=== PATIENT | male | born 1960 | race Caucasian/White ===

== ENCOUNTER 2020-04-25 14:14 | Emergency (ER) | payer OTHER ==
[~2020-04-25 14:14] MED LIST: LAMISIL AT12 G2 TOP; VENTOLIN HFA IN18 GM INH; VOLTAREN **OUT75 MG PO
[2020-04-25 15:55] LABS: LACTIC ACID 3.3 mmol/L (0.4-1.9)
[2020-04-25 16:09] LABS: ALBUMIN 2.4 g/dL (3.4-5.0); ALKALINE PHOSHATASE 101 U/L (46-116); ALT 36 U/L (16-63); AST 70 U/L (15-37); BUN 23 mg/dL (7-18); BUN/CREAT RATIO (CALC) 15.5 RATIO; CHLORIDE 106 mmol/L (98-107); CO2 (BICARBONATE) 22 mmol/L (21-32); CREATININE 1.48 mg/dL (0.67-1.17); GLOBULIN (CALCULATION) 4.4 g/dL; GLUCOSE 90 mg/dL (74-106); LIPASE 59 U/L (73-393); POTASSIUM 3.4 mmol/L (3.5-5.1); TOTAL PROTEIN 6.8 g/dL (6.4-8.2)
[2020-04-25 16:12] LABS: EOSINOPHIL 3.1 % (0-5); HCT 32.5 % (42.0-52.0); HGB 10.8 g/dl (13.2-18.0); LYMPHOCYTE 19.8 % (15-48); MCH 30.8 pg (25.0-31.0); MCHC 33.2 g/dL (32.0-36.0); MCV 92.6 fL (78.0-100.0); MONOCYTE 13.6 % (0-12); NEUTROPHIL 61.8 % (41-80); NRBC 0; PLT 243 K/uL (150-400); RBC 3.51 M/uL (4.70-6.00); RDW 16.3 % (11.5-14.0); WBC 12.5 K/uL (4.0-10.5)
[2020-04-25 16:27] LABS: PTT 33.2 SECONDS (22.2-34.7)
[2020-04-25 16:28] LABS: BILIRUBIN 2+ mg/dL (NEGATIVE); BLOOD 2+ Ery/uL (NEGATIVE); CLARITY CLEAR (CLEAR); COLOR ORANGE (YELLOW); GLUCOSE (U) NORMAL (NORMAL); LEUKOCYTES NEGATIVE Leu/uL (NEGATIVE); NITRITE POSITIVE (NEGATIVE); PROTEIN NEGATIVE (NEGATIVE); SPECIFIC GRAVITY 1.025 (1.001-1.030)
[2020-04-25 16:32] LABS: INR 1.45 (0.9-1.2); PROTHROMBIN TIME 16.7 SECONDS (11.4-13.6)
[2020-04-25 16:33] LABS: ECSTASY (MDMA) NEGATIVE (NEGATIVE); MARIJUANA (THC) NEGATIVE (NEGATIVE); METHADONE NEGATIVE (NEGATIVE); OPIATES NEGATIVE (NEGATIVE)
[2020-04-25 16:34] LABS: AMPHETAMINES NEGATIVE (NEGATIVE); BARBITURATES NEGATIVE (NEGATIVE); OXYCODONE NEGATIVE (NEGATIVE)
[2020-04-25 16:38] LABS: BACTERIA TRACE; URINARY WBC RARE
[2020-04-25 16:39] LABS: MUCOUS TRACE
[2020-04-25 21:51] LABS: CPK 480 U/L (39-308)
[2020-04-25 21:53] LABS: ACETAMINOPHEN (TYLENOL) < 2.0 ug/mL (10.0-30.0)
[2020-04-26] MEDS ORDERED: KEFLEX250 MG PO (04:53)
== END 2020-04-26 10:50 | disposition home or self-care (01) ==
LOC: FER 14:14
PROVIDERS: Emergency Medicine
DX: F22 Delusional disorders (principal); E80.6 Other disorders of bilirubin metabolism; S81.802A Unspecified open wound, left lower leg, initial encounter; S81.801A Unspecified open wound, right lower leg, initial encounter; I10 Essential (primary) hypertension; J44.9 Chronic obstructive pulmonary disease, unspecified; W06.XXXA Fall from bed, initial encounter
CPT/HCPCS: 36415; 70450; 71045; 72170; 73630; 80053; 80305; 81001; 82140; 82550; 83605; 83690; 84145; 84443; 84484; 85025; 85610; 85730; 87040; 87088; G0480; J7030

== ENCOUNTER 2020-05-01 19:40 | Day surgery (SDCO) | payer OTHER ==
[~2020-05-01] VITALS: Ht 177.8 cm; Wt 130.8 kg
[~2020-05-01 19:40] MED LIST changes: +KEFLEX250 MG PO
[2020-05-01 20:55] LABS: BASOPHIL 1.1 % (0-2); EOSINOPHIL 6.2 % (0-5); HCT 28.2 % (42.0-52.0); HGB 8.6 g/dl (13.2-18.0); LYMPHOCYTE 22.3 % (15-48); MCH 30.1 pg (25.0-31.0); MCHC 30.5 g/dL (32.0-36.0); MCV 98.6 fL (78.0-100.0); MONOCYTE 11.3 % (0-12); MPV 10.3 fL (6.0-9.5); NEUTROPHIL 58.8 % (41-80); NRBC 0; PLT 99 K/uL (150-400); RBC 2.86 M/uL (4.70-6.00); RDW 16.4 % (11.5-14.0); WBC 3.7 K/uL (4.0-10.5)
[2020-05-01 21:20] LABS: BILIRUBIN - TOTAL 0.7 mg/dL (0.2-1.0); BUN/CREAT RATIO (CALC) 12.4 RATIO; CREATININE 1.29 mg/dL (0.67-1.17); GLOBULIN (CALCULATION) 4.1 g/dL; POTASSIUM 4.3 mmol/L (3.5-5.1); TOTAL PROTEIN 6.1 g/dL (6.4-8.2)
[2020-05-01 21:29] LABS: BILIRUBIN NEGATIVE (NEGATIVE); BLOOD 3+ Ery/uL (NEGATIVE); CLARITY CLEAR (CLEAR); COLOR YELLOW (YELLOW); GLUCOSE (U) NORMAL (NORMAL); LEUKOCYTES NEGATIVE Leu/uL (NEGATIVE); NITRITE NEGATIVE (NEGATIVE); PROTEIN NEGATIVE (NEGATIVE); pH 7.5 (5.0-9.0)
[2020-05-01 21:35] LABS: SQUAMOUS EPITHELIAL CELLS RARE; URINARY RBC 20-50; URINARY WBC RARE
[2020-05-03] MEDS ORDERED: KEFLEX250 MG PO (17:46)
[2020-05-03] MEDS ORDERED: LEXAPRO 10MG TA10 MG PO (17:46)
[2020-05-03] MEDS ORDERED: BACTRIM 400-801 EACH PO (17:47)
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
--- NOTE | 2020-05-04 18:00 | NUR ---
1600: CALLED [facility] FOR TRANSPORT, EMS JEWELRY ESTIMATOR QUAN CALLED BACK AND STATED THEY WILL NOT TRANSPORT PATIENT R/T HIM SIGNING OUT AMA AND NOT NEEDING MEDICAL ATTENTION, WENT TO BEDSIDE TO INFORM PATIENT AND HE BECAME IRRTATE AND STATED "YALL CAN'T KEEP ME HERE" I EXPLAINED TO HIM THAT WE HAD NO WAY TO GET HIM HOME AND I CONTACTED LAB SUPPORT TECHNICIAN TO BECOME INVOLVED.
--- NOTE | 2020-05-04 20:10 | NUR ---
1900: PATIENT REQUESTED TO GO BACK TO THE ER SINCE HE WAS STILL WAITING ON TRANSPORTATION, INFORMATION RESOURCES DIRECTOR WAS CALLED, STATED THAT WE SHOULD JUST KEEP HIM ON THE FLOOR INSTEAD OF STARTING PROCESS OF ADMISSION AND PLACEMENT, DISCUSSED WITH MD AND PATIENT AND IT WAS DECIDED THAT HE WOULD STAY.
--- NOTE | 2020-05-05 04:02 | NUR ---
1954- placed ibarra catheter 1999- patient requested to be placed on a lift and left dangle off of the bed. he states, "i do that all of the time at home with my lift". i educated that that would be unsafe. educated him also that we can place pillows behind him to relieve pressure off of his bottom and we can turn him side to side every 2 hours to prevent breakdown. patient states, "thats not going to work. my side hurts to lay on my side like that." after going back and forth about it, he allowed us to place 2 pillows behind him, to have him on his right side. 2129- patient calls out requesting to have the pillows removed, he was in too much pain and that the pillows elevated like that doesnt help. he didnt want pillows on the other side either. stressed the importance of Q2 hour turns but the patient was very adimant about not using the pillows.
[2020-05-05 06:43] LABS: BASOPHIL 0.8 % (0-2); EOSINOPHIL 6.4 % (0-5); HCT 26.5 % (42.0-52.0); HGB 8.5 g/dl (13.2-18.0); LYMPHOCYTE 21.7 % (15-48); MCH 30.9 pg (25.0-31.0); MCHC 32.1 g/dL (32.0-36.0); MCV 96.4 fL (78.0-100.0); MONOCYTE 9.2 % (0-12); MPV 11.1 fL (6.0-9.5); NEUTROPHIL 61.9 % (41-80); NRBC 0; RBC 2.75 M/uL (4.70-6.00); WBC 3.6 K/uL (4.0-10.5)
[2020-05-05 06:45] LABS: PLT 82 K/uL (150-400)
[2020-05-05 07:02] LABS: ALBUMIN 1.9 g/dL (3.4-5.0); BILIRUBIN - TOTAL 0.8 mg/dL (0.2-1.0); BUN/CREAT RATIO (CALC) 18.2 RATIO; CREATININE 0.88 mg/dL (0.67-1.17); GLOBULIN (CALCULATION) 4.1 g/dL; POTASSIUM 3.5 mmol/L (3.5-5.1)
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
--- NOTE | 2020-05-06 13:57 | NUR ---
THIS RN AND HARESH RN AT BEDSIDE. PT LOUD ARGUEMENTATIVE AND CURSING SAYING WE ARE "FUCKING WITH HIS LIFE AND KEEPING HIM HERE AGAINST HIS WILL". WE EXPLAINED THAT WE ARE NOT KEEPING HIM BUT HE HAS TO HAVE A PLACE TO GO TO AFTER HE IS DISCHARGED, WE CAN'T LEAVE HIM ON THE STREET. PT CALMED DOWN AND APOLOGETIC. HE STATED TO THIS RN THAT HE WANTED TO SIGN HIMSELF INTO A LONG-TERM. THIS RN TOLD PATIENT THAT SHE WOULD TELL BROADCAST CORRESPONDENT TOMORROW TO GET A REFERRAL TO A LONG-TERM. PT THEN STARTS CRYING AND RAISES HIS VOICE AND STATES HE HAS TO MAKE US LOVE HIM LIKE HE HAS TO MAKE HIS FAMILY LOVE HIM. THEN PT STATED HE DIDN'T WANT TO GO TO A LONG-TERM NOW THAT IT WAS GOING TO TAKE TOO LONG.
--- NOTE | 2020-05-07 11:41 | NUR ---
05/07/20 Mr. Shay was brought to the ED on 05/01/20 by an EMS from [place]. Patient had [facility]. EMS brought him to [facility] after being unable to get Mr. Shay into 2 different homes. Patient's son, Chico Shay, [phone], states that he does not wish to have contact with Mr. Shay. Florinda Garcia, [phone], has not responded to calls. Melva Winslow, former girlfriend to Dina, patient's daughter, wishes for her contact information to be removed from the face sheet. Esteban, Richard Fabian, [phone], reports patient not to be listed on the lease and therefore he will not uhnlock the door to the [place] address. Mr. Peralta reports that Ms. Garcia will terminate her lease at the end of May. However, May's rent has not been paid. - The [facility], , reports persons be required to manage their own ADLs and to transfer independently to a bed. Mr. Shay states that he is unable to transfer independently. - Mr. Shay initially said he would not go to a NH and then he agreed. Referrals were made to [facility] on 05/03/20. -Today, Mr. Shay states that he will not go to a NH. He reports plans to go to a motel. He does not have his bank card and believes Ms. Garcia will pay for the hotle room. - This professor of social work and Kashif Mejia were present when Mr. Shay was speaking to Ms. Garcia on the telephone. Ms. Garcia said the [facility] the [facility] have been placed in the front yard to include Mr. Shay's hospital bed and w/c. - Mr. Peralta Esteban was contacted. He agreed to place the items back in the home. - Plans were made for this professor of social work and Ms. Mejia to return re-visit Mr. Shay for an update on his plans.
--- NOTE | 2020-05-07 13:23 | NUR ---
MET WITH MR. JEFFERS HE HAS SPOKEN WITH HIS BANK, ABOUND. PER MR. JEFFERS, THE BANK HAS AGREED TO ALLOW MR. HERNANDEZ TO SIGN A NOTORIZED STATEMENT THAT WILL ALLOW SAE HERNANDEZ TO WITHDRAW $1,253.00 FROM HIS SAVINGS ACCOUNT. TYPED THE STATEMENT FOR MR. JEFFERS AND READ THE INFORMATION TO HIM IN FRONT OF THE ALLEY LOZANO. MR. CAMARILLO SIGNED THE STATEMENT. GAVE HIM THE ORIGINAL STATEMENT WELL A COPY.
--- NOTE | 2020-05-07 13:25 | NUR ---
MR. JEFFERS ASKED ME TO REMAIN IN THE ROOM WHILE HE CALLED THE [facility]. HE STATED THAT THEY DO HAVE A ROOM AVAILABLE AND FOR TWO NIGHTS IT WOULD COST $110.00 AND FOR A WEEK IT WOULD BE APPROX $300.00 PLUS. MR. JEFFERS IS REFUSING TO GO TO A FACILITY OR REHAB. HE STATES THAT HE UNDERSTANDS THE CONSEQUENCES OF TRYING TO CARE FOR HIMSELF AND THAT HE ACCEPTS FULL RESPONSIBLITY. HE WILL TRY TO CONTACT HIS FRIEND, URBANO, FOR ASSISTANCE. HE STATES THAT HIS SISTER, JOSÉ MIGUEL, AND GIRLFRIEND, SAE, WILL BRING HIM FOOD. I ADVISED MR. JEFFERS THIS IS NOT THE BEST PLAN AND THAT HE SHOULD RECONSIDER GOING TO A FACILITY. AT THIS TIME HE BECAME UPSET AND STATED THAT HE "DONE HIS TIME AND PAID BACK SOCIETY" AND HE WOULD NOT BE LOCKED IN ANOTHER FACILITY.
--- NOTE | 2020-05-08 17:33 | NUR ---
HUMAN FACTORS ENGINEER, HARESH, ADVISED THAT SHE SPOKE WITH DR. MELGOZA AND PT. WOULD BE ALLOWED TO D/C AMA. HARESH ADVISED TO ARRANGE A RIDE AND GET A WHEELCHAIR. HARESH AND I MET WITH PT. IN HIS ROOM AND HIS GIRLFRIEND, SAE. HARESH ADVISED PT. THAT HE COULD SIGN OUT AMA. HARESH ADVISED TO GET A WHEELCHAIR AND TRANSPORTATION FOR PT. TC TO [facility] TRANSPORTATION. THEY WILL PROVIDE A WHEELCHAIR VAN FOR TRANSPORATION TO THE [facility]. SPOKE WITH SABI, SHE ADVISED THAT PT. WOULD BE PICKED UP FOR TRANSPORTATION APPROX 5-5:30 P.M. CONFIRMATION# [id number]. TC TO MARÍA. SHE HAS ARRANGED A BARIATRIC WHEELCHAIR TO BE DELIVERED. SHE HAS SPOKEN WITH PT. AND HE HAS AGREED TO HAVE THE BARATIRIC CHAIR DELIVERED. MET MARÍA IN THE ED TO GET THE WHEELCHAIR. DELIVERED WHEELCHAIR TO PT ROOM. ADVISED HIS NURSE BARB THAT WHEELCHAIR WAS IN THE ROOM AND GRIT WAS PICKING UP THE PATIENT. PT. REPORTS THAT HIS NEW PHONE NUMBER IS [phone]. # IS [phone].
--- NOTE | 2020-05-08 17:40 | NUR ---
DR. DUC MELGOZA SIGNED THE DWO. FAXED BACK TO LUISA AT [facility]
--- NOTE | 2020-05-08 18:29 | NUR ---
1700 PATIENT REQUESTED TO LEAVE AMA. NOTIFIED, SEE CARE CORDNIATION NOTE. AMA FORM SIGNED BY PATIENT AND WITNESSED BY THIS RN
--- NOTE | 2020-05-08 18:30 | NUR ---
1705 ROLDAN CATHERTER REMOVED AT THIS TIME. PATIENT TOLERATED WELL
--- NOTE | 2020-05-18 15:38 | NUR ---
06/18/20 A voicemail was received from Mr. Shay stating he has moved from the hotle to home. He reported his telephone # to be: [phone]. This information was relayed to Preeti Pardo with [facility].
== END 2020-05-08 17:43 | disposition left against medical advice (07) ==
LOC: FER 19:40 → FMS 05-03 16:11
PROVIDERS: Emergency Medicine Emergency Medical Services; Nurse Practitioner; ADMIT Internal Medicine
DX: S71.102A Unspecified open wound, left thigh, initial encounter (principal); S81.802A Unspecified open wound, left lower leg, initial encounter; S91.302A Unspecified open wound, left foot, initial encounter; S91.301A Unspecified open wound, right foot, initial encounter; G82.20 Paraplegia, unspecified; F41.9 Anxiety disorder, unspecified; F32.9 Major depressive disorder, single episode, unspecified; F10.10 Alcohol abuse, uncomplicated; J44.9 Chronic obstructive pulmonary disease, unspecified; G47.30 Sleep apnea, unspecified; K59.00 Constipation, unspecified; K21.9 Gastro-esophageal reflux disease without esophagitis; F15.10 Other stimulant abuse, uncomplicated; Z53.29 Procedure and treatment not carried out because of patient's decision for other reasons; Z60.9 Problem related to social environment, unspecified; Z59.0 Homelessness; Z87.891 Personal history of nicotine dependence; Z79.899 Other long term (current) drug therapy; Z99.3 Dependence on wheelchair; Z20.828 Contact with and (suspected) exposure to other viral communicable diseases
CPT/HCPCS: 36415; 71045; 80053; 81001; 83605; 83690; 85025; 93005; 94640; 94664; 96372; 97110; 97162; 97167; 97530-GP; 97535; G0378; J1644; J1650; U0002

== ENCOUNTER 2020-05-09 01:23 | Emergency (ER) | payer OTHER ==
[~2020-05-09 01:23] MED LIST changes: +BACTRIM 400-801 EACH PO; +LEXAPRO 10MG TA10 MG PO
--- NOTE | 2020-05-09 10:05 | NUR ---
XENAD CALL FROM [facility] IN ED. SHE ADVISED THAT PT WAS BROUGHT INTO THE ED FOR CHEST PAIN, BUT HAS BEEN DC. SHE HAS CONTACTED [facility] FOR TRANSPORT, BUT PT. DOES NOT HAVE HIS WHEELCHAIR. CONTACTED, [facility]. REQUESTED TO UTILIZE FACILITIES PERSONNEL TO ASSIST THIS RESPIRATORY SERVICES MANAGER WITH GOING TO THE HOTEL TO GET WHEELCHAIR. SHE APPROVED THE REQUEST. CONTACTED ANA LILIA ROSEN MGR. ADVISED HIM OF MY REQUEST. HE WILL SEND EDITH TO TRANSPORT ME TO THE [facility]. MET WITH EDITH - PICKED UP THE WHEELCHAIR AT THE HOTEL AND DELIVERED TO PATIENT IN ED. PT. WILL BE TRANSOPRTED BACK TO THE HOTEL. PT. ADVISED THAT HIS GIRLFRIEND, SAE, WILL BE COMING TO THE HOTEL TODAY TO ASSIST HIM.
== END 2020-05-09 09:06 | disposition home or self-care (01) ==
LOC: FER 01:23
DX: R07.89 Other chest pain (principal); R00.0 Tachycardia, unspecified; F17.200 Nicotine dependence, unspecified, uncomplicated
CPT/HCPCS: 93005; 99284

== ENCOUNTER 2020-05-18 16:21 | Emergency (ER) | payer OTHER | END 2020-05-18 18:54 | disposition home or self-care (01) | LOC: FER 16:21 | DX: S76.012A Strain of muscle, fascia and tendon of left hip, initial encounter (principal); J44.9 Chronic obstructive pulmonary disease, unspecified; W05.0XXA Fall from non-moving wheelchair, initial encounter; Y92.009 Unspecified place in unspecified non-institutional (private) residence as the place of occurrence of the external cause | CPT/HCPCS: 73502 ==

== ENCOUNTER 2020-06-22 13:12 | Emergency (ER) | payer OTHER ==
[2020-06-22 15:19] LABS: AMPHETAMINES NEGATIVE (NEGATIVE); BARBITURATES NEGATIVE (NEGATIVE); BILIRUBIN NEGATIVE (NEGATIVE); BLOOD NEGATIVE Ery/uL (NEGATIVE); CLARITY CLEAR (CLEAR); COLOR YELLOW (YELLOW); ECSTASY (MDMA) NEGATIVE (NEGATIVE); GLUCOSE (U) NORMAL (NORMAL); LEUKOCYTES NEGATIVE Leu/uL (NEGATIVE); MARIJUANA (THC) NEGATIVE (NEGATIVE); METHADONE NEGATIVE (NEGATIVE); NITRITE NEGATIVE (NEGATIVE); OPIATES NEGATIVE (NEGATIVE); OXYCODONE NEGATIVE (NEGATIVE); PROTEIN NEGATIVE (NEGATIVE)
[2020-06-22 16:52] LABS: BASOPHIL 0.6 % (0-2); EOSINOPHIL 4.1 % (0-5); HCT 31.5 % (42.0-52.0); LYMPHOCYTE 26.1 % (15-48); MCH 30.2 pg (25.0-31.0); MCHC 31.7 g/dL (32.0-36.0); MCV 95.2 fL (78.0-100.0); MONOCYTE 10.3 % (0-12); MPV 10.9 fL (6.0-9.5); NEUTROPHIL 58.7 % (41-80); NRBC 0; PLT 136 K/uL (150-400); RBC 3.31 M/uL (4.70-6.00); RDW 14.1 % (11.5-14.0); WBC 4.9 K/uL (4.0-10.5)
[2020-06-22 17:14] LABS: ALBUMIN 2.2 g/dL (3.4-5.0); BILIRUBIN - TOTAL 0.8 mg/dL (0.2-1.0); CREATININE 0.81 mg/dL (0.67-1.17); GLOBULIN (CALCULATION) 4.2 g/dL; POTASSIUM 3.6 mmol/L (3.5-5.1); TOTAL PROTEIN 6.4 g/dL (6.4-8.2)
[2020-06-22] MEDS ORDERED: CYCLOBENZAPRINE10 MG PO (17:48)
== END 2020-06-23 01:45 | disposition home or self-care (01) ==
LOC: FER 13:12
PROVIDERS: Physician Assistant
DX: M54.5 Low back pain (principal); G89.29 Other chronic pain; R74.01 Elevation of levels of liver transaminase levels; M51.27 Other intervertebral disc displacement, lumbosacral region; M48.061 Spinal stenosis, lumbar region without neurogenic claudication; K74.60 Unspecified cirrhosis of liver; K80.80 Other cholelithiasis without obstruction; R16.1 Splenomegaly, not elsewhere classified; L97.129 Non-pressure chronic ulcer of left thigh with unspecified severity; I10 Essential (primary) hypertension; F17.210 Nicotine dependence, cigarettes, uncomplicated
CPT/HCPCS: 36415; 72131; 80053; 80305; 81003; 85025; J1885

== ENCOUNTER 2020-07-06 20:16 | Inpatient (IN) | payer OTHER ==
[~2020-07-06 20:16] MED LIST changes: +CYCLOBENZAPRINE10 MG PO
[2020-07-06 21:00] LABS: BASOPHIL 1.1 % (0-2); EOSINOPHIL 4.2 % (0-5); HCT 28.4 % (42.0-52.0); HGB 9.4 g/dl (13.2-18.0); LYMPHOCYTE 23.1 % (15-48); MCH 30.1 pg (25.0-31.0); MCHC 33.1 g/dL (32.0-36.0); MONOCYTE 12.9 % (0-12); MPV 10.3 fL (6.0-9.5); NEUTROPHIL 58.5 % (41-80); NRBC 0; PLT 142 K/uL (150-400); RBC 3.12 M/uL (4.70-6.00); RDW 13.5 % (11.5-14.0); WBC 5.5 K/uL (4.0-10.5)
[2020-07-06 21:21] LABS: ALBUMIN 2.1 g/dL (3.4-5.0); BILIRUBIN - TOTAL 0.8 mg/dL (0.2-1.0); BUN/CREAT RATIO (CALC) 18.2 RATIO; CREATININE 0.99 mg/dL (0.67-1.17); GLOBULIN (CALCULATION) 3.8 g/dL; POTASSIUM 3.5 mmol/L (3.5-5.1); TOTAL PROTEIN 5.9 g/dL (6.4-8.2)
[2020-07-06 21:32] LABS: BILIRUBIN NEGATIVE (NEGATIVE); BLOOD NEGATIVE Ery/uL (NEGATIVE); CLARITY HAZY (CLEAR); COLOR YELLOW (YELLOW); GLUCOSE (U) NORMAL (NORMAL); LEUKOCYTES 2+ Leu/uL (NEGATIVE); NITRITE NEGATIVE (NEGATIVE); PROTEIN NEGATIVE (NEGATIVE); pH 6.5 (5.0-9.0)
[2020-07-06 21:33] LABS: AMPHETAMINES NEGATIVE (NEGATIVE); BARBITURATES NEGATIVE (NEGATIVE); ECSTASY (MDMA) NEGATIVE (NEGATIVE); MARIJUANA (THC) NEGATIVE (NEGATIVE); METHADONE NEGATIVE (NEGATIVE); OPIATES NEGATIVE (NEGATIVE); OXYCODONE NEGATIVE (NEGATIVE)
[2020-07-06 21:38] LABS: URINARY WBC 20-50
[2020-07-06 21:39] LABS: BACTERIA 4+; SQUAMOUS EPITHELIAL CELLS RARE
[2020-07-06 22:08] LABS: CORONAVIRUS 2019 SARS-COV-2 NEGATIVE (NEGATIVE); INFLUENZA A NAA NEGATIVE (NEGATIVE)
--- NOTE | 2020-07-07 06:35 | NUR ---
REFUSING LAB DRAW DESPITE SEVERAL STAFF EDUCATING AND EXPLAINING, PRACTITIONER MADE AWARE
[2020-07-07] MEDS ORDERED: COZAAR100 MG PO (18:06)
[2020-07-07] MEDS ORDERED: SINGULAIR 10MG10 MG PO (18:06)
[2020-07-07] MEDS ORDERED: HYDRALAZINE25 MG PO (18:08)
[2020-07-07] MEDS ORDERED: CYMBALTA 30MG C30 MG PO (18:08)
[2020-07-07] MEDS ORDERED: LASIX20 MG PO (18:08)
[2020-07-07] MEDS ORDERED: VOLTAREN **OUT50 MG PO (18:09)
[2020-07-07] MEDS ORDERED: VENTOLIN HFA IN18 GM INH (18:10)
[2020-07-07] MEDS ORDERED: QUETIAPINE FUMA50 M1 PO (18:12)
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
[2020-07-08 12:48] LABS: BASOPHIL 0.5 % (0-2); EOSINOPHIL 3.4 % (0-5); HCT 28.2 % (42.0-52.0); HGB 9.3 g/dl (13.2-18.0); LYMPHOCYTE 20.7 % (15-48); MCH 30.3 pg (25.0-31.0); MCV 91.9 fL (78.0-100.0); MONOCYTE 9.2 % (0-12); MPV 10.4 fL (6.0-9.5); NRBC 0; PLT 109 K/uL (150-400); RBC 3.07 M/uL (4.70-6.00); RDW 13.2 % (11.5-14.0); WBC 4.2 K/uL (4.0-10.5)
[2020-07-08 13:05] LABS: BILIRUBIN - TOTAL 0.6 mg/dL (0.2-1.0); BUN/CREAT RATIO (CALC) 20.5 RATIO; CREATININE 0.88 mg/dL (0.67-1.17); GLOBULIN (CALCULATION) 4.1 g/dL; POTASSIUM 3.5 mmol/L (3.5-5.1); TOTAL PROTEIN 6.1 g/dL (6.4-8.2)
--- NOTE | 2020-07-10 10:15 | NUR ---
Patient triggered for nutrition screen 2' score 5 on MST. Currently on dental soft diet with 75-100% intake. Patient denies weight changes in H&P by physician. Wt from last admission 288lbs; current wt 297lb,135kg. assessment not appropriate at this time. Will monitor intake %s and f/u if need. YOLIS Hernandez
--- NOTE | 2020-07-11 11:41 | NUR ---
LATE ENTRY: MET WITH PT. ON 07/09/20. HE STATES THAT HE CANNOT GO BACK TO HIS SISTER AND BROTHER IN [place] HOME. HE STATES THAT HE HAS NO WHERE TO GO AND IS WILLING TO GO TO A PLACMENT OR DRUG REHAB. HE STATES THAT HE HAS NOT USED DRUGS IN OVER 2 MOS. I ASKED HIM ABOUT THE POS DRUG SCREEN FOR METH, BUT HE DENIES ANY USE. I HAVE SPOKEN WITH HIS BROTHER IN LAW, NATALYA ([phone]) HE HAS ADVISED THAT ORANGLÉICA CANNOT COME BACK TO THEIR HOME. HE WOULD NOT GO INTO SPECIFICS, BUT THAT HE NEEDED A PLACE TO GO. REQUESTS FOR PLACEMENT HAVE BEEN SENT TO OVER [facility]. AT THIS TIME I DO NOT HAVE AN ACCEPTING FACILITY. I HAVE BEEN TOLD ON MULIT[facility] OCCASIONS THAT PT MUST BE CLEAN 6 MOS BEFORE A PERSONAL CAREGIVER CARE FACILITY WOULD ACCEPT HIM.
--- NOTE | 2020-07-11 11:46 | NUR ---
SPOKE WITH POLINA AT [facility] THIS DATE. SHE IS WILLING TO LOOK AT THE REFERRAL. REFERRRAL HAS BEEN SENT TO THE [facility] IN [place].
[2020-07-11 14:19] LABS: AMPHETAMINES NEGATIVE (NEGATIVE); BARBITURATES NEGATIVE (NEGATIVE); ECSTASY (MDMA) NEGATIVE (NEGATIVE); MARIJUANA (THC) NEGATIVE (NEGATIVE); METHADONE NEGATIVE (NEGATIVE); OPIATES POSITIVE (NEGATIVE); OXYCODONE NEGATIVE (NEGATIVE)
--- NOTE | 2020-07-12 11:57 | NUR ---
PATIENT WAS PLACED IN CHAIR BY PT, WHEN DOING ROUNDS PATIENT WAS FOUND TO BE YELLING AND CRYING THAT HE WAS HURTING. WHEN ASKED IF HE WANTED PAIN MEDICATION PATIENT STARTED YELLING "NO, I WANT TO GO BACK TO BED!". I STATED THAT HE NEEDED TO STAY UP FOR AWHILE TO ALLOW THE BLOOD TO FLOW BETTER AND FOR REASONS FOR RECOVERY. PATIENT STATED, "I DON'T CARE, PUT ME BACK IN THE BED. IF YOU DON'T I AM GOING TO FALL IN THE FLOOR." I STATED THAT HE SHOULD NOT DO THAT. THAT ALL IT WOULD DO IS CAUSE BIGGER ISSUES. HE STATED, "I DON'T CARE, MY LEGS ARE HURTING." I INFORMED HIM I WAS GOING TO TALK WITH THE DOCTOR. ME, MARYLIN BUSTOS AND DR ESQUIVEL WENT BACK INTO THE ROOM. DR ESQUIVEL TOLD HIM THAT HE NEEDED HIM TO SET UP FOR ATLEAST 30 MINUTES AND THAT HE WOULD GET HIM A MUSCLE RELAXER AND THAT WOULD HELP. GOT MEDICATION PULLED UP AND GAVE TO PATIENT WITH MARYLIN BUSTOS. PATIENT BECAME CALMER BUT STILL STATED THAT HE COULD NOT SIT UP AND WANTED TO GO BACK TO BED. HE DID NOT CARE WHAT THE DOCTOR SAID. HE WANTED TO GO BACK TO BED, NOW. WITH THE ASSISTANCE OF MARYLIN, PATIENT WAS PUT BACK INTO BED WITH LIFT AND BECAME CALMER AND HAPPIER.
--- NOTE | 2020-07-13 10:26 | NUR ---
TC FROM ELIGIO MCQUEEN. [facility] HAS ACCEPTED PT. REPORT NUMBER IS [phone]. FAX NUMBER IS [phone] IF YOU CAN'T REACH SOMEONE IN THE BUILDING, CALL THE TOW PICKER ON HER CELL AT [phone].
--- NOTE | 2020-07-13 10:27 | NUR ---
ADVISED PT. THAT HE HAS BEEN ACCEPTED AT [facility]. PT. STATES THAT HE WILL GO TO THE FACILITY.
--- NOTE | 2020-07-13 10:28 | NUR ---
ADVISED PT. NURSE, JENNIFER Smith AND DR. ESQUIVEL THAT PT. HAS BEEN ACCEPTED AT [facility].
[2020-07-13] MEDS ORDERED: LEVAQUIN750 MG PO (10:55)
[2020-07-13] MEDS ORDERED: BACLOFEN 10MG T10 MG PO (10:55)
[2020-07-13] MEDS ORDERED: FLORANEX TABLE1 EACH PO (10:55)
[2020-07-13] MEDS ORDERED: PANTOPRAZOLE SO40 MG PO (10:55)
[2020-07-14] MEDS ORDERED: VENTOLIN HFA IN18 GM INH (22:33)
[2020-07-14] MEDS ORDERED: NORVASC5 MG PO (22:34)
[2020-07-14] MEDS ORDERED: SYMBICORT 80-10.2 GM INH (22:35)
[2020-07-14] MEDS ORDERED: LEXAPRO 10MG TA10 MG PO (22:36)
[2020-07-14] MEDS ORDERED: GABAPENTIN600 MG PO (22:36)
[2020-07-14] MEDS ORDERED: HYDRALAZINE25 MG PO (22:37)
[2020-07-14] MEDS ORDERED: ATARAX25 MG PO (22:38)
[2020-07-14] MEDS ORDERED: ZADITOR5 ML EYEBOTH (22:39)
[2020-07-14] MEDS ORDERED: SPIRIVA 18MCG18 MCG INH (22:40)
[2020-07-14] MEDS ORDERED: TRIAMCINOLONE 080 GM TOP (22:42)
[2020-07-14] MEDS ORDERED: VENLAFAXINE H37.5 M1 PO (22:43)
[2020-07-15 23:07] LABS: AMPHETAMINES Negative (Cutoff=500)
== END 2020-07-13 13:25 | DRG 689 ==
LOC: FER 20:16 → FMS 22:12
PROVIDERS: Hospitalist; Internal Medicine; Nurse Practitioner; Nurse Practitioner Family; ADMIT Internal Medicine
DX: N30.00 Acute cystitis without hematuria (principal); G93.41 Metabolic encephalopathy; G82.20 Paraplegia, unspecified; T14.8XXS Other injury of unspecified body region, sequela; J44.9 Chronic obstructive pulmonary disease, unspecified; G47.30 Sleep apnea, unspecified; Z99.81 Dependence on supplemental oxygen; K21.9 Gastro-esophageal reflux disease without esophagitis; F32.9 Major depressive disorder, single episode, unspecified; Z66 Do not resuscitate; Z20.822 Contact with and (suspected) exposure to COVID-19; F17.210 Nicotine dependence, cigarettes, uncomplicated; D64.9 Anemia, unspecified; K74.60 Unspecified cirrhosis of liver; B96.1 Klebsiella pneumoniae [K. pneumoniae] as the cause of diseases classified elsewhere; Z86.19 Personal history of other infectious and parasitic diseases; Z98.890 Other specified postprocedural states; M24.50 Contracture, unspecified joint; S80.212A Abrasion, left knee, initial encounter; K76.0 Fatty (change of) liver, not elsewhere classified; N26.1 Atrophy of kidney (terminal)
CPT/HCPCS: 36415; 80053; 80305; 81001; 83540; 83550; 85025; 87076; 87088; 87186; 97162; 97166; 97535; 99284; G0480; J0696; J1650; J3360; J3486; U0002

== ENCOUNTER 2020-07-14 17:18 | Inpatient (IN) | payer OTHER ==
[~2020-07-14 17:18] MED LIST changes: +BACLOFEN 10MG T10 MG PO; +COZAAR100 MG PO; +CYMBALTA 30MG C30 MG PO; +FLORANEX TABLE1 EACH PO; +HYDRALAZINE25 MG PO; +LASIX20 MG PO; +LEVAQUIN750 MG PO; +PANTOPRAZOLE SO40 MG PO; +QUETIAPINE FUMA50 M1 PO; +SINGULAIR 10MG10 MG PO; +VOLTAREN **OUT50 MG PO
[2020-07-14 18:36] LABS: BASOPHIL 0.4 % (0-2); EOSINOPHIL 1.3 % (0-5); HCT 34.4 % (42.0-52.0); HGB 11.3 g/dl (13.2-18.0); LYMPHOCYTE 11.6 % (15-48); MCH 29.4 pg (25.0-31.0); MCHC 32.8 g/dL (32.0-36.0); MCV 89.6 fL (78.0-100.0); MONOCYTE 7.1 % (0-12); MPV 11.6 fL (6.0-9.5); NEUTROPHIL 79.2 % (41-80); NRBC 0; RBC 3.84 M/uL (4.70-6.00); RDW 13.6 % (11.5-14.0); WBC 7.5 K/uL (4.0-10.5)
[2020-07-14 18:37] LABS: PLT 130 K/uL (150-400)
[2020-07-14 18:48] LABS: CREATININE 1.41 mg/dL (0.67-1.17); POTASSIUM 4.2 mmol/L (3.5-5.1)
[2020-07-14] MEDS ORDERED: VENTOLIN HFA IN18 GM INH (22:33)
[2020-07-14] MEDS ORDERED: NORVASC5 MG PO (22:34)
[2020-07-14] MEDS ORDERED: SYMBICORT 80-10.2 GM INH (22:35)
[2020-07-14] MEDS ORDERED: LEXAPRO 10MG TA10 MG PO (22:36)
[2020-07-14] MEDS ORDERED: GABAPENTIN600 MG PO (22:36)
[2020-07-14] MEDS ORDERED: HYDRALAZINE25 MG PO (22:37)
[2020-07-14] MEDS ORDERED: ATARAX25 MG PO (22:38)
[2020-07-14] MEDS ORDERED: ZADITOR5 ML EYEBOTH (22:39)
[2020-07-14] MEDS ORDERED: SPIRIVA 18MCG18 MCG INH (22:40)
[2020-07-14] MEDS ORDERED: TRIAMCINOLONE 080 GM TOP (22:42)
[2020-07-14] MEDS ORDERED: VENLAFAXINE H37.5 M1 PO (22:43)
[2020-07-15 07:01] LABS: HCT 29.5 % (42.0-52.0); HGB 9.7 g/dl (13.2-18.0); MCH 29.8 pg (25.0-31.0); MCHC 32.9 g/dL (32.0-36.0); MCV 90.8 fL (78.0-100.0); MPV 10.9 fL (6.0-9.5); RBC 3.25 M/uL (4.70-6.00); RDW 13.7 % (11.5-14.0); WBC 8.7 K/uL (4.0-10.5)
[2020-07-15 07:21] LABS: ALBUMIN 2.3 g/dL (3.4-5.0); BILIRUBIN - TOTAL 0.8 mg/dL (0.2-1.0); BUN/CREAT RATIO (CALC) 19.7 RATIO; CREATININE 1.27 mg/dL (0.67-1.17); GLOBULIN (CALCULATION) 3.7 g/dL; POTASSIUM 3.5 mmol/L (3.5-5.1)
[2020-07-16 07:24] LABS: BASOPHIL 0.5 % (0-2); EOSINOPHIL 2.9 % (0-5); LYMPHOCYTE 19.5 % (15-48); MCH 29.2 pg (25.0-31.0); MCHC 32.1 g/dL (32.0-36.0); MCV 90.9 fL (78.0-100.0); MONOCYTE 7.6 % (0-12); MPV 11.7 fL (6.0-9.5); NEUTROPHIL 69.2 % (41-80); NRBC 0; PLT 103 K/uL (150-400); RBC 3.08 M/uL (4.70-6.00); RDW 13.7 % (11.5-14.0); WBC 6.2 K/uL (4.0-10.5)
[2020-07-16 08:08] LABS: ALBUMIN 2.2 g/dL (3.4-5.0); BILIRUBIN - TOTAL 0.6 mg/dL (0.2-1.0); BUN/CREAT RATIO (CALC) 20.6 RATIO; CREATININE 0.97 mg/dL (0.67-1.17); GLOBULIN (CALCULATION) 3.6 g/dL; POTASSIUM 3.7 mmol/L (3.5-5.1); TOTAL PROTEIN 5.8 g/dL (6.4-8.2)
--- NOTE | 2020-07-16 10:04 | NUR ---
Patient triggered score of 1 on the nursing MST; reported eating poorly with decreased appetite. Patient is on Reg diet, consuming 100%. D/C plans are established with patient to be inpatient at assisted care facility. Nutritional needs will continue to be monitored.
--- NOTE | 2020-07-16 10:47 | NUR ---
07/16/20 0955 22GA S/L STARTED IN LEFT WRIST X1 STICK. GOOD BLOOD RETURN NOTED. PT TOLERATED WELL. REPORT TO Kelly LAN RN
--- NOTE | 2020-07-16 13:29 | NUR ---
SPOKE WITH AMY GARCIA, PT. SISTER AND BROTHER IN LAW THIS DATE. THEY HAVE BOTH STATED THAT PT. CANNOT RETURN TO THEIR HOME. THE SISTER IS HAVING HEALTH ISSUES AND IS UNABLE TO CARE FOR PT. SPOKE WITH SAE, PT. GIRLFRIEND. SHE STATED THAT PT. CANNOT LIVE WITH HER SHE RESIDES WITH HER DAUGHTER AND SON IN [place] AND HE CANNOT RESIDE WITH THEM. REFERRAL MADE TO APS FOR ASSISTANCE. STARTED MAKING REFERRALS TO [facility]IT[facility].
[2020-07-17] MEDS ORDERED: LACTULOSE10 G/15 ML PO (15:24)
--- NOTE | 2020-07-17 15:44 | NUR ---
PT. HAS BEEN DENIED BY [facility] AND THE TWO BEHAVIOR FACILITIES, [facility]. DISCUSSED PLACEMENT WITH ORVAL HE STATED THAT HIS BROTHER IN LAW IS GOING TO LET HIM COME BACK TO HIS HOME. TC TO NATALYA [phone]. HE AGREED THAT ORVAL CAN COME BACK. ADVISED HIM THAT [facility] IS BEING DISCHARGED TODAY. NATALYA SAID THAT HIS SON, TONNY WILL BE AT THE HOUSE WAITING FOR ORVAL. ORVAL IS IN AGREEMENT TO GO BACK TO [facility]. TC TO [facility] THEY WILL TRANSPORT PT. TO HIS HOME CONFIRMATION NUMBER IS [id number]. THEY WILL PICK HIM UP AT 5:00 P.M. PT HAS HIS OWN WHEELCHAIR.
== END 2020-07-17 17:16 | disposition home health service (06) | DRG 682 ==
LOC: FER 17:18 → FMS 20:13
PROVIDERS: Nurse Practitioner; Nurse Practitioner Family; ADMIT Internal Medicine
DX: N17.9 Acute kidney failure, unspecified (principal); G93.41 Metabolic encephalopathy; G82.20 Paraplegia, unspecified; J44.9 Chronic obstructive pulmonary disease, unspecified; B96.20 Unspecified Escherichia coli [E. coli] as the cause of diseases classified elsewhere; E86.0 Dehydration; M54.5 Low back pain; I50.9 Heart failure, unspecified; K21.9 Gastro-esophageal reflux disease without esophagitis; F32.9 Major depressive disorder, single episode, unspecified; F17.200 Nicotine dependence, unspecified, uncomplicated; G89.29 Other chronic pain
CPT/HCPCS: 36415; 36600; 80048; 80053; 82140; 82550; 82803; 85025; 93005; 94640; J1650; J7030

== ENCOUNTER 2020-09-10 00:51 | Inpatient (IN) | payer OTHER ==
[~2020-09-10 00:51] MED LIST changes: +ATARAX25 MG PO; +GABAPENTIN600 MG PO; +LACTULOSE10 G/15 ML PO; +NORVASC5 MG PO; +SPIRIVA 18MCG18 MCG INH; +SYMBICORT 80-10.2 GM INH; +TRIAMCINOLONE 080 GM TOP; +VENLAFAXINE H37.5 M1 PO; +ZADITOR5 ML EYEBOTH
[2020-09-10 02:31] LABS: ALBUMIN 2.4 g/dL (3.4-5.0); BILIRUBIN - TOTAL 0.7 mg/dL (0.2-1.0); BUN/CREAT RATIO (CALC) 13.7 RATIO; CREATININE 0.95 mg/dL (0.67-1.17); GLOBULIN (CALCULATION) 3.4 g/dL; POTASSIUM 4.4 mmol/L (3.5-5.1); TOTAL PROTEIN 5.8 g/dL (6.4-8.2)
[2020-09-10 02:39] LABS: LACTIC ACID 1.4 mmol/L (0.4-1.9)
[2020-09-10 02:46] LABS: BASOPHIL 0.8 % (0-2); EOSINOPHIL 4.2 % (0-5); HCT 32.8 % (42.0-52.0); HGB 11.1 g/dl (13.2-18.0); LYMPHOCYTE 26.6 % (15-48); MCH 29.9 pg (25.0-31.0); MCHC 33.8 g/dL (32.0-36.0); MCV 88.4 fL (78.0-100.0); MONOCYTE 10.9 % (0-12); MPV 10.5 fL (6.0-9.5); NEUTROPHIL 57.1 % (41-80); NRBC 0.4; PLT 128 K/uL (150-400); RBC 3.71 M/uL (4.70-6.00); RDW 14.6 % (11.5-14.0); WBC 5.2 K/uL (4.0-10.5)
[2020-09-10 02:54] LABS: BILIRUBIN NEGATIVE (NEGATIVE); BLOOD NEGATIVE Ery/uL (NEGATIVE); COLOR YELLOW (YELLOW); GLUCOSE (U) NORMAL (NORMAL); LEUKOCYTES 1+ Leu/uL (NEGATIVE); NITRITE NEGATIVE (NEGATIVE); PROTEIN NEGATIVE (NEGATIVE); UROBILINOGEN >=8.0 mg/dL (0.2-1.0); pH 6.5 (5.0-9.0)
[2020-09-10 02:59] LABS: CLARITY HAZY (CLEAR)
[2020-09-10 03:01] LABS: BACTERIA 4+; URINARY WBC 20-50
[2020-09-10 03:21] LABS: CORONAVIRUS 2019 SARS-COV-2 NEGATIVE (NEGATIVE); INFLUENZA A NAA NEGATIVE (NEGATIVE)
[2020-09-10 03:56] LABS: INR 1.21 (0.9-1.2); PROTHROMBIN TIME 14.5 SECONDS (11.4-13.6); PTT 30.9 SECONDS (22.2-34.7)
[2020-09-10 04:01] LABS: MAGNESIUM 1.7 mg/dL (1.8-2.4)
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
--- NOTE | 2020-09-10 11:26 | NUR ---
PHONE CALL RECEIVED FROM SREGIO, PATIENT'S BROTHER IN LAW. SERGIO STATES, "WE DO NOT HAVE WHAT IT TAKES TO TAKE CARE OF HIM HERE." RN CLARIFIED IF HE WAS SAYING PATIENT WAS UNABLE TO RETURN TO THEIR HOME AND SERGIO STATED "YES". OBTAINED SERGIO' PHONE NUMBER [phone] IN CASE SOMEONE NEEDS TO CALL HIM. ADVISED CARE COORDINATION/DISCHARGE PLANNING THAT FAMILY HAS SAID PATIENT IS UNABLE TO RETURN TO THEIR HOME.
--- NOTE | 2020-09-10 13:22 | NUR ---
SPOKE WITH PT. REARDING THE MESSAGE FROM HIS KOSTAS. PT. STATED THAT HE DID NOT CARE WHAT HIS SAID, HE GETS HIS MAIL, AND HIS CHECK AT THIS ADDRESS. HE IS GOING TO RETURN TO THE HIS SISTER'S HOME. ATTEMPTED TC TO BROTHER IN LAW, NATALYA, HAD TO LEAVE A MESSAGE.
[2020-09-11 06:36] LABS: BASOPHIL 0.7 % (0-2); EOSINOPHIL 4.1 % (0-5); HCT 31.8 % (42.0-52.0); HGB 10.5 g/dl (13.2-18.0); LYMPHOCYTE 28.2 % (15-48); MCH 29.7 pg (25.0-31.0); MCV 89.8 fL (78.0-100.0); MONOCYTE 11.1 % (0-12); MPV 10.8 fL (6.0-9.5); NEUTROPHIL 55.6 % (41-80); NRBC 0; PLT 146 K/uL (150-400); RBC 3.54 M/uL (4.70-6.00); RDW 14.8 % (11.5-14.0); WBC 5.9 K/uL (4.0-10.5)
[2020-09-11 07:02] LABS: ALBUMIN 2.2 g/dL (3.4-5.0); BILIRUBIN - TOTAL 0.9 mg/dL (0.2-1.0); CREATININE 1.53 mg/dL (0.67-1.17); GLOBULIN (CALCULATION) 3.2 g/dL; POTASSIUM 4.2 mmol/L (3.5-5.1); TOTAL PROTEIN 5.4 g/dL (6.4-8.2)
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
[2020-09-12 04:58] LABS: HCT 31.9 % (42.0-52.0); HGB 10.5 g/dl (13.2-18.0); MCH 29.7 pg (25.0-31.0); MCHC 32.9 g/dL (32.0-36.0); MCV 90.1 fL (78.0-100.0); RBC 3.54 M/uL (4.70-6.00); RDW 14.7 % (11.5-14.0); WBC 5.2 K/uL (4.0-10.5)
[2020-09-12 05:01] LABS: BUN/CREAT RATIO (CALC) 23.4 RATIO; CREATININE 1.41 mg/dL (0.67-1.17); POTASSIUM 4.4 mmol/L (3.5-5.1)
[2020-09-13] MEDS ORDERED: LEVAQUIN500 MG PO (11:53)
--- NOTE | 2020-09-13 13:03 | NUR ---
CALLED [facility] FOR WHEELCHAIR TRANSPORTATION. APPROX DIE MAKER TIME IS 1:30 P.M. CONFIRMATION # IS [id number]. NURSE FELISA AND I WENT TO PT ROOM TO EXPLAIN TRANSPORATION. LALA STATED THAT HIS SISTER WOULD DIE MAKER HIS MEDICATION AT THE PHARMACY. ADVISED LALA TO CONTACT [facility] WHEN HE ARRIVES HOME SO THEY CAN DIE MAKER THE BORROWED WHEELCHAIR. LALA IS TO CALL [facility] AT [phone].
--- NOTE | 2020-09-13 13:07 | NUR ---
LALA STATES THAT HE IS RETURNING TO HIS SISTERS HOME.
--- NOTE | 2020-09-14 14:47 | NUR ---
SPOKE WITH LALA AND SPOKE WITH HIS GIRLFRIEND, SAE, BY PHONE. SHE IS WILLING TO GO [facility] AND SUPERVISOR COMPOUNDING AND FINISHING PT MEDICATION AND TAKE IT TO HIM. PT. IS PLANNING TO RETURN TO THE HOME OF HIS SISTER JOSÉ MIGUEL GARCIA AND HER NATALYA GARCIA. PER AKASH DAWSON. SHE HAS ARRANGED FOR EMS TO TAKE HIM TO HIS HOME WELL THE RURAL ELECTRIFICATION ENGINEER'S OFFICE TO ACCOMPANY PT. DAXAANGÉLICA'S BROTHER IN LAW, NATALYA, HAS SAID THAT PT. WILL NOT BE ALLOWED INTO THE HOME, THUS THE RURAL ELECTRIFICATION ENGINEER'S OFFICE IS GOING TO THE HOME WITH THE PATIENT. TO SEE THAT THE PATIENT CAN GET INTO THE HOME.
--- NOTE | 2020-09-14 15:02 | NUR ---
LATE ENTRY NOTE: YESTERDAY, THIS RN WAS CALLED TO THE BEDSIDE TO ASSIST WITH GETTING PATIENT UP WITH THE MECHANICAL LIFT INTO THE WHEELCHAIR FOR TRANSPORT HOME. PATIENT WAS NOT ABLE TO SIT UP IN THE CHAIR WITHOUT SLIPPING DOWN IN THE CHAIR. PATIENT UNABLE TO MOVE OR BEND RIGHT LEG, WAS UNABLE TO PUT HIS FOOT, OR CONTROL THE MOVEMENT OF HIS RIGHT LEG, TO KEEP HIS FOOT ON THE WHEELCHAIR FOOT REST. PATIENT WAS RE-POSITIONED USING THE MECHANICAL LIFT FOR THE SECOND TIME, WIHOUT SUCCESS. PATIENT CONTINUED TO DRIFT DOWN TOWARDS THE EDGE OF THE WHEELCHAIR AND WAS OBVIOUSLY IN DANGER OF FALLING OUT OF THE WHEELCHAIR. I NOTIFIED MAYNOR, PATCHER WOOD WELDER AND ILENE WITH CARE COORDINATION. CATS WAS NOTIFIED THAT THE PATIENT COULD NOT BE SAFELY TRANSPORTED HOME VIA WHEELCHAIR IN THE VAN. I CALLED AND SPOKE WITH EMS, THE PROVIDER DR FELICIANO FILLED OUT THE MEDICAL NECESSITY FORM FOR TRANSPORT HOME VIA EMS. I SPOOKE WITH THE SHIFT LEAD, QUAN, MULTIPLE TIMES REGARDING THE PATIENTS NEED FOR EMS TRANSPORT HOME. EMS ARRIVED TO TRANSPORT THE PATIENT HOME, EMS ASKED US TO VERIFY THAT THE FAMILY WAS HOME BECAUSE THEY HAVE ATTEMPTED TO TRANSPORT THIS PATIENT HOME BEFORE, AND WAS UNABLE TO GET INTO THE HOUSE. THE PATIENT DOES NOT HAVE HIS OWN WELSH. THE PATIENT LIVES WITH HIS SISTER AND BROTHER IN LAW, AND PAYS THEM RENT (PER PATIENT REPORT). AFTER MULTIPLE ATTEMPTS TO CALL THE SISTER AND BROHTER IN LAW, NATALYA THE BROTHER IN LAW ANSWERED. HE STATED TO ME "I CANNOT CARE FOR HIM, HE IS NOT COMING HERE." MR JEFFERS SAID "I PAID MY RENT UP UNTIL THE FIRST OF THE MONTH, IM COMING HOME." NATALYA HUNG UP ON ME. EMS WAS NOTIFED OF THIS CONVERSATION AND I ALSO NOTIFIED MAYNOR AND THE CNO GEOVANI, AND LIQUOR STORES AND AGENCIES SUPERVISOR JAMIE. PATIENT WILL REMAIN IN THE HOSPITAL UNTIL TOMORROW, WHEN CC RETURNS.
--- NOTE | 2020-09-14 15:11 | NUR ---
REFERRAL MADE TO APS THIS DATE. TC TO FREDDY WITH DCBS, APS TO ADVISE OF PT. DISCHARGE TO HIS BROTHER IN LAW'S HOME. HAD TO LEAVE A MESSAGE FOR FREDDY THAT PT. HAD DISCHARGED TO HIS BROTHER IN [place] HOME.
--- NOTE | 2020-09-14 15:17 | NUR ---
THIS RN SPOKE TO THIS AM REGARDING THE PLAN FOR DISCHAGE HOME. MAYNOR, GLASS DRILLER, SPOKE WITH ADULT PROTECTIVE SERVCIES YESTERDAY, WE HAD PLACED A REFERRAL AND MR JEFFERS ALREADY HAS AN ASSIGNED UX ARCHITECT. THE UX ARCHITECT RELAYED TO MAYNOR THAT SINCE MR JEFFERS IS OF SOUND MIND, HE IS ABLE TO MAKE HIS OWN DECISIONS AND THERE "IS NOTHING" THEY CAN DO IF HE REFUSES RESOURCES WE PROVIDE HIM WITH. MR JEFFERS REFUSED ALL OPTIONS FOR HELP (HOME HEATLH, REHAB, NURSING FACILITIES). I SPOKE WITH ALEX ASHLEY THIS AM REGARDING THIS SITUATION. I THEN CALLED THE VANESSA HOLT BAND BOOKER'S OFFICE TO ASK FOR ASSISTANCE WITH TRANSPORTING MR JEFFERS TO HIS RESIDENCE. I THEN SPOKE WITH MEI WITH EMS REGARDING HIS TRANPORT TO HOME. EMS ARRIVED ON 09/14/2020 AT 1400. VANESSA HOLT DEPUTY ALSO ARRIVED TO THE HOSPITAL TO ACCOMPANY THE EMS CREW TO MR KEN RESIDENCE. THE PATIENT WAS STABLE UPON D/C HOME. THE PATIENT WAS REMINDED MULTIPLE TIMES TO OBTAIN HIS PRESCRIPTION OF LEVAQUIN AND TAKE PRESCRIBED. THE PATIENT REPORTED THAT HIS "GIRLFRIEND" MATTHIAS WOULD BE PICKING UP THE MEDICATION FOR HIM. PER REPORT FROM EMS, THE PATIENT MADE IT HOME SAFELY AROUND 1437 ON 09/14/2020.
[2021-01-27] MEDS ORDERED: MEDROL 4MG DOSEP4 MG PO (08:33)
[2021-01-27] MEDS ORDERED: NORCO 5-325 TA1 EACH PO (08:33)
[2021-01-27] MEDS ORDERED: ROBAXIN500 MG PO (08:33)
[2021-01-27] MEDS ORDERED: BACTRIM DS TAB1 EACH PO (08:41)
== END 2020-09-14 14:08 | disposition home or self-care (01) | DRG 690 ==
LOC: FER 00:51 → FMS 03:25
PROVIDERS: Emergency Medicine; Hospitalist; Nurse Practitioner; ADMIT Internal Medicine
PROC: 02HV33Z Insertion of Infusion Device into Superior Vena Cava, Percutaneous Approach (ICD-10-PCS; principal; 2020-09-10)
DX: N30.00 Acute cystitis without hematuria (principal); G82.20 Paraplegia, unspecified; I13.0 Hypertensive heart and chronic kidney disease with heart failure and stage 1 through stage 4 chronic kidney disease, or unspecified chronic kidney disease; N17.9 Acute kidney failure, unspecified; K72.90 Hepatic failure, unspecified without coma; I50.9 Heart failure, unspecified; Z20.822 Contact with and (suspected) exposure to COVID-19; N20.0 Calculus of kidney; N18.30 Chronic kidney disease, stage 3 unspecified; B96.1 Klebsiella pneumoniae [K. pneumoniae] as the cause of diseases classified elsewhere; G89.29 Other chronic pain; E66.01 Morbid (severe) obesity due to excess calories; F17.210 Nicotine dependence, cigarettes, uncomplicated; J44.9 Chronic obstructive pulmonary disease, unspecified; G47.30 Sleep apnea, unspecified; K59.00 Constipation, unspecified; K21.9 Gastro-esophageal reflux disease without esophagitis; F32.9 Major depressive disorder, single episode, unspecified; Z98.890 Other specified postprocedural states; Z79.899 Other long term (current) drug therapy; Z91.14 Patient's other noncompliance with medication regimen; Z68.38 Body mass index [BMI] 38.0-38.9, adult
CPT/HCPCS: 36415; 71045; 80048; 80053; 80202; 81001; 82140; 82150; 83605; 83735; 84100; 84145; 84484; 85025; 85610; 85730; 87040; 87076; 87077; 87088; 87186; 93005; 94010; 94640; 96374; 96375; C9113; J1650; J1885; J1956; J2185; J3370; J3475; J7030; J7050; U0002

== ENCOUNTER 2020-09-17 04:14 | Day surgery (SDCO) | payer OTHER ==
[~2020-09-17] VITALS: Ht 177.8 cm; Wt 131.1 kg
[~2020-09-17 04:14] MED LIST changes: +LEVAQUIN500 MG PO
--- NOTE | 2020-09-17 13:59 | NUR ---
PT. IS BACK IN ED DUE TO KERI NOT HAVING THE CORRECT INFORMATION REGARDING HIS MEDICATION AND HE COULD NOT CERTIFIED FLEX ENDOSCOPE REPROCESSOR HIS MEDICATION. MET WITH JESSICA, FINANCIAL COUNSELOR. SHE CONTACTED MEDICAID AND THEY GAVE HER THE MEDICAID NUMBERS [place]. [place] [id number] [facility] [id number] GROUP# IS [place] PBM-[id number] TC TO NGHIAGRETA SPOKE WITH [place]. GAVE HER THE NEW NUMBERS. SHE ADVISED THAT THE PAYMENT FOR THE MEDICATION WENT THROUGH. ADVISED LALA AND SAE, HIS GIRLFRIEND. SHE STATED THAT SHE WOULD CERTIFIED FLEX ENDOSCOPE REPROCESSOR THE MEDICATION. SPOKE WITH MAYNOR REGARDING TRANSPORATION FOR PT. SHE IS GOING TO CALL FREDDY WITH APS AT [facility]. MET WITH PT. HE HAS AGREED FOR A REFERRAL TO BE SENT TO [facility]. TC TO ABEL AT [facility]. SHE ADVISED TO FAX THE CLINICALS HER [facility] IS DOWN TODAY. FAXED CLINICALS.
[2020-09-17 22:23] LABS: BILIRUBIN NEGATIVE (NEGATIVE); BLOOD 1+ Ery/uL (NEGATIVE); CLARITY CLEAR (CLEAR); COLOR YELLOW (YELLOW); GLUCOSE (U) NORMAL (NORMAL); LEUKOCYTES NEGATIVE Leu/uL (NEGATIVE); NITRITE NEGATIVE (NEGATIVE); PROTEIN NEGATIVE (NEGATIVE)
[2020-09-17 22:36] LABS: BACTERIA TRACE; URINARY RBC 20-50
--- NOTE | 2020-09-18 16:44 | NUR ---
[facility] WITH [facility] REQUESTED AN INTERVIEW WITH PT. RECEIVED PERMISSION FROM RAHUL HOLLAND FOR VIC TO COME TO THE FLOOR TO MEET WITH PT. [facility], PIPED BUTTONHOLE MACHINE OPERATOR, WITH [facility] HAS ACCEPTED PT. AT THEIR FACILITY FOR 09/19/2020. REPORT NUMBER IS [id number] AND E FAX NUMBER IS [phone]. ADVISED NURSE FREDDY AND DR. CABALLERO.
[2020-09-18] MEDS ORDERED: VENLAFAXINE HCL75 M1 PO (17:35)
[2020-09-18] MEDS ORDERED: SEROQUEL 25MG T25 MG PO (17:35)
[2020-09-18] MEDS ORDERED: NEURONTIN300 MG PO (17:37)
[2021-01-27] MEDS ORDERED: ROBAXIN500 MG PO (08:33)
[2021-01-27] MEDS ORDERED: MEDROL 4MG DOSEP4 MG PO (08:33)
[2021-01-27] MEDS ORDERED: NORCO 5-325 TA1 EACH PO (08:33)
[2021-01-27] MEDS ORDERED: BACTRIM DS TAB1 EACH PO (08:41)
== END 2020-09-19 10:24 ==
LOC: FER 04:14 → FMS 18:59
PROVIDERS: Nurse Practitioner; ADMIT Allergy & Immunology Allergy
DX: G89.29 Other chronic pain (principal); I50.9 Heart failure, unspecified; J44.9 Chronic obstructive pulmonary disease, unspecified; G47.30 Sleep apnea, unspecified; K21.9 Gastro-esophageal reflux disease without esophagitis; F32.9 Major depressive disorder, single episode, unspecified; F17.210 Nicotine dependence, cigarettes, uncomplicated; Z87.440 Personal history of urinary (tract) infections; Z79.899 Other long term (current) drug therapy
CPT/HCPCS: 81001; 87088; 94010; 94640; 94667; 94668; 94760; 99284; G0378; J1170; J1650

== ENCOUNTER 2020-11-06 20:50 | Emergency (ER) | payer OTHER ==
[~2020-11-06 20:50] MED LIST changes: +NEURONTIN300 MG PO; +SEROQUEL 25MG T25 MG PO; +VENLAFAXINE HCL75 M1 PO
[2020-11-06 21:45] LABS: BASOPHIL 0.8 % (0-2); EOSINOPHIL 6.5 % (0-5); HCT 27.1 % (42.0-52.0); LYMPHOCYTE 18.6 % (15-48); MCH 29.3 pg (25.0-31.0); MCHC 33.2 g/dL (32.0-36.0); MCV 88.3 fL (78.0-100.0); MONOCYTE 9.5 % (0-12); MPV 11.3 fL (6.0-9.5); NEUTROPHIL 64.2 % (41-80); NRBC 0; PLT 128 K/uL (150-400); RBC 3.07 M/uL (4.70-6.00); RDW 14.6 % (11.5-14.0); WBC 5.3 K/uL (4.0-10.5)
[2020-11-06 21:54] LABS: BILIRUBIN 1+ mg/dL (NEGATIVE); BLOOD 1+ Ery/uL (NEGATIVE); CLARITY CLEAR (CLEAR); COLOR YELLOW (YELLOW); GLUCOSE (U) NORMAL (NORMAL); LEUKOCYTES 2+ Leu/uL (NEGATIVE); NITRITE NEGATIVE (NEGATIVE); PROTEIN 2+ mg/dL (NEGATIVE); SPECIFIC GRAVITY 1.025 (1.001-1.030)
[2020-11-06 21:55] LABS: AMPHETAMINES POSITIVE (NEGATIVE); BARBITURATES NEGATIVE (NEGATIVE); ECSTASY (MDMA) NEGATIVE (NEGATIVE); MARIJUANA (THC) NEGATIVE (NEGATIVE); METHADONE NEGATIVE (NEGATIVE); OPIATES NEGATIVE (NEGATIVE); OXYCODONE NEGATIVE (NEGATIVE)
[2020-11-06 21:55] LABS: ALBUMIN 2.5 g/dL (3.4-5.0); BILIRUBIN - TOTAL 0.7 mg/dL (0.2-1.0); BUN/CREAT RATIO (CALC) 12.6 RATIO; CREATININE 0.87 mg/dL (0.67-1.17); GLOBULIN (CALCULATION) 3.4 g/dL; POTASSIUM 3.6 mmol/L (3.5-5.1); TOTAL PROTEIN 5.9 g/dL (6.4-8.2)
[2020-11-06 21:59] LABS: LACTIC ACID 1.7 mmol/L (0.4-1.9)
[2020-11-06 22:01] LABS: BACTERIA 2+; URINARY WBC 20-50
[2021-01-27] MEDS ORDERED: MEDROL 4MG DOSEP4 MG PO (08:33)
[2021-01-27] MEDS ORDERED: ROBAXIN500 MG PO (08:33)
[2021-01-27] MEDS ORDERED: NORCO 5-325 TA1 EACH PO (08:33)
[2021-01-27] MEDS ORDERED: BACTRIM DS TAB1 EACH PO (08:41)
== END 2020-11-07 11:33 | disposition home or self-care (01) ==
LOC: FER 20:50
PROVIDERS: Emergency Medicine
DX: N30.00 Acute cystitis without hematuria (principal); N30.20 Other chronic cystitis without hematuria; F19.10 Other psychoactive substance abuse, uncomplicated; J44.9 Chronic obstructive pulmonary disease, unspecified; Q60.0 Renal agenesis, unilateral; F17.210 Nicotine dependence, cigarettes, uncomplicated
CPT/HCPCS: 36415; 71045; 80053; 80305; 81001; 83605; 84145; 84484; 85025; 87040; 87076; 87088; 87186; 93005; J0696; J7030

== ENCOUNTER 2020-11-07 18:23 | Day surgery (SDCO) | payer OTHER ==
[~2020-11-07] VITALS: Ht 177.8 cm; Wt 121.1 kg
--- NOTE | 2020-11-08 03:34 | NUR ---
Late entry at 1999 during skin assessment, an 8 X 6 inch open area noted to left inner knee area, area cleaned and non-adhesive dressing applied. Left lower leg and ankle noted to have various stages of sores.
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
--- NOTE | 2020-11-08 10:41 | NUR ---
PT CAME TO ER AGAIN; SS WENT TO ER AND ARRANGED FOR HIM, UNFORTUNATLY HE WAS NOT PICKED UP AND ER COULD NOT REACH ANY FAMILY OR FRIENDS; PT WAS SENT UP TO M/S FLOOR WITH NO ACUTE MEDICAL ILLNESS JUST SOCIAL ADMISSION DUE TO LACK OF HOME; I CALLED MEDICAID TO SEE ABOUT DISCHARGE PLANNING ASSISTANCE; SPOKE TO JELLY AT PROVIDER SERVICES AT [phone] HE TRANSFERED ME TO MARI OUR PHONE CALL WAS DISCONNECTED I CALLED FREDDY TO [phone] DEPARTMENT [facility] AND WAS CONNECTED TO JENIFER SHE TRANSFERED ME TO DEAN HE TOOK INFORMATION DOWN AND GOT MY PNONE NUMBER TO SEE IF HE COULD HELP WITH PLACEMENT.
--- NOTE | 2020-11-08 15:48 | NUR ---
11/08/20 Mr. Shay was admitted for OBS from the ED. He was seen on 11/07/20 in the ED with c/o back pain. Arrangements were made for hime to be transported home via CATS in a loaner wc from the hospital. Family would not assist with the transfer from the to his hospital bed, therefore CATS returned Mr. Shay to the hospital. A friend, Arcadio, (last name unknown) [phone], said he was going to order picker Mr. Shay. Arcadio never arrived. - An APS referral was made to Jovita Kolb, , ref # [id number]. Mr. Shay reports to be living in the garage of the home of Chrissy Greer. Kristi Greer, . - Several conversations have taken place with APS child protective services social worker, Michelle Bernstein, . Ms. Bernstein reports to be discussing the case with her refuse collector supervisor. Ms. Bernstein states, she is only able to provide telephone # to [facility] to Mr. Shay. Ms. Bernstein plans to talk to [facility] re: available services. She was asked to discuss getting an exparta order. Ms. Bernstein said this is very difficult to accomplish. - Mr. Shay is in agreement with [place] placement or a Personal Usp. He prefers the [place] area. He declined an [place] facility or any facility greater than an hour from [place]. [place] and [place] are his preferences. - [place], Cris Guzman, said they will not consider pt for admission due to 3 previous denials.
--- NOTE | 2020-11-08 19:48 | NUR ---
PATIENT FOUND WITH DIFFERENT ARMBAND ON, ACCOUNT NUMBER DIFFERENT [id number]. NOTIFIED SKYLER GUERRA AND AKASH BRITT [facility] ACCOUTNS NEEDED MERGED. CORRECT IDENTIFYING ARMBAND PLACED ON PATIENT
--- NOTE | 2020-11-09 15:29 | NUR ---
11/09/20 Referrals have been made to 26 Nursing Homes, plus all of the [facility] in the [facility], and 8 Family Care Homes. Kymberly Wood, [phone], [facility] will interview Mr. Shay today for possible acceptance into her [facility]. - [facility] has accepted patient for 11/12/20. Dr. Sargent was requested to order a COVID test.
--- NOTE | 2020-11-09 16:43 | NUR ---
11/09/20 Kymberly Wood and her daughter, Anneliese, interviewed with Mr. Shay. They are considering accepting him and will make a decision by 11/12/20.
--- NOTE | 2020-11-11 11:04 | NUR ---
11/11/20 Nursing reports that patient's nephew picked him up on 11/10/20. Kymberly Wood / [facility], [facility] and Fabio Bernstein / [facility] were notified.
--- NOTE | 2020-11-12 13:45 | NUR ---
11/12/20 An unsuccessful attempt was made to reach Mr. Shay by telephone. Message received stating [phone] is not a working number. A message was left with his sister, Kristi, [phone], informing her that [facility] will still accept him per Nicolasa, . Note: Referral were made to the following facilities: Family Care Homes - All denied or did not respond to the call [place]: Kymberly Mejia: Tyree Huerta: Criss Garcias: Edgard Pickens: Kristen [facility]: [place] : [place] and [facility] (including Signatures throughout the region) [place]: [facility] and [facility]: [facility] and [facility] [place]: Angela [facility] and [facility], [facility] of [facility] and Sterling Mejia: Joshi [place] and Thor Celio: [facility], [place] at [facility], [facility], [facility], [place] [facility], [facility], [facility], [facility], [facility], [place], [facility], [facility], and [place]. - [place] ([phone]) accepted.
[2021-01-27] MEDS ORDERED: ROBAXIN500 MG PO (08:33)
[2021-01-27] MEDS ORDERED: NORCO 5-325 TA1 EACH PO (08:33)
[2021-01-27] MEDS ORDERED: MEDROL 4MG DOSEP4 MG PO (08:33)
[2021-01-27] MEDS ORDERED: BACTRIM DS TAB1 EACH PO (08:41)
== END 2020-11-10 20:00 | disposition home or self-care (01) ==
LOC: FER 18:23 → FMS 18:48
PROVIDERS: ADMIT Internal Medicine
DX: G89.29 Other chronic pain (principal); M54.5 Low back pain; M79.606 Pain in leg, unspecified; R82.71 Bacteriuria; B95.2 Enterococcus as the cause of diseases classified elsewhere; J44.9 Chronic obstructive pulmonary disease, unspecified; I50.9 Heart failure, unspecified; B19.20 Unspecified viral hepatitis C without hepatic coma; K21.9 Gastro-esophageal reflux disease without esophagitis; G47.30 Sleep apnea, unspecified; F32.9 Major depressive disorder, single episode, unspecified; F17.210 Nicotine dependence, cigarettes, uncomplicated; F19.10 Other psychoactive substance abuse, uncomplicated; Z79.899 Other long term (current) drug therapy; Z87.440 Personal history of urinary (tract) infections; Z98.890 Other specified postprocedural states
CPT/HCPCS: 87088; 94640; 97110; 97162; 99284; G0378; Q0162

== ENCOUNTER 2020-11-13 23:19 | Day surgery (SDCO) | payer OTHER ==
[~2020-11-13] VITALS: Ht 177.8 cm; Wt 120.7 kg
[2020-11-14 00:44] LABS: BASOPHIL 0.4 % (0-2); EOSINOPHIL 4.5 % (0-5); HCT 30.3 % (42.0-52.0); HGB 10.4 g/dl (13.2-18.0); LYMPHOCYTE 12.9 % (15-48); MCH 29.1 pg (25.0-31.0); MCHC 34.3 g/dL (32.0-36.0); MCV 84.9 fL (78.0-100.0); MONOCYTE 9.3 % (0-12); NEUTROPHIL 72.6 % (41-80); NRBC 0; PLT 190 K/uL (150-400); RBC 3.57 M/uL (4.70-6.00); RDW 14.6 % (11.5-14.0); WBC 10.8 K/uL (4.0-10.5)
[2020-11-14 01:05] LABS: IRON % SATURATION 13.2 %SAT (20-50)
[2020-11-14 01:11] LABS: LACTIC ACID 1.3 mmol/L (0.4-1.9)
[2020-11-14 01:21] LABS: ALBUMIN 2.8 g/dL (3.4-5.0); ALKALINE PHOSHATASE 103 U/L (46-116); ALT 52 U/L (16-63); AST 85 U/L (15-37); BILIRUBIN - TOTAL 0.9 mg/dL (0.2-1.0); BUN 52 mg/dL (7-18); BUN/CREAT RATIO (CALC) 31.5 RATIO; CHLORIDE 103 mmol/L (98-107); CO2 (BICARBONATE) 21 mmol/L (21-32); CPK 1179 U/L (39-308); CREATININE 1.65 mg/dL (0.67-1.17); GLOBULIN (CALCULATION) 3.9 g/dL; GLUCOSE 132 mg/dL (74-106); LIPASE 233 U/L (73-393); MAGNESIUM 2.7 mg/dL (1.8-2.4); POTASSIUM 3.5 mmol/L (3.5-5.1); TOTAL PROTEIN 6.7 g/dL (6.4-8.2)
[2020-11-14 03:41] LABS: BILIRUBIN NEGATIVE (NEGATIVE); BLOOD 1+ Ery/uL (NEGATIVE); CLARITY SLIGHTLY HAZY (CLEAR); COLOR YELLOW (YELLOW); GLUCOSE (U) NORMAL (NORMAL); LEUKOCYTES TRACE Leu/uL (NEGATIVE); NITRITE NEGATIVE (NEGATIVE); PROTEIN NEGATIVE (NEGATIVE); UROBILINOGEN 0.2 mg/dL (0.2-1.0); pH 5.5 (5.0-9.0)
[2020-11-14 03:44] LABS: AMPHETAMINES NEGATIVE (NEGATIVE); BARBITURATES NEGATIVE (NEGATIVE); ECSTASY (MDMA) NEGATIVE (NEGATIVE); MARIJUANA (THC) NEGATIVE (NEGATIVE); METHADONE NEGATIVE (NEGATIVE); OPIATES NEGATIVE (NEGATIVE); OXYCODONE NEGATIVE (NEGATIVE)
[2020-11-14 03:47] LABS: BACTERIA 1+
[2020-11-14 13:28] LABS: ALBUMIN 2.3 g/dL (3.4-5.0); BUN/CREAT RATIO (CALC) 32.8 RATIO; CREATININE 1.25 mg/dL (0.67-1.17); PHOSPHORUS 3.7 mg/dL (2.6-4.7); POTASSIUM 3.2 mmol/L (3.5-5.1)
--- NOTE | 2020-11-14 13:44 | NUR ---
1250 MIDLINE ORDERED FOR IV FLUIDS AND ANTIBIOTICS, PT IS A HARD STICK. PROCEDURE EXPLAINED TO PT, PT AGRREED TO PROCEDURE. PT PREPPED AND DRAPED IN STERILE FASHION. THE PT'S LEFT UPPER ARM BASILIC VEIN WAS VISUALIZED USING THE SITE RITE #6 US MACHINE. A 21 GAUGE GUIDE NEEDLE WAS USED, UNABLE TO THREAD THE WIRE, THIS WAS ATTEMPTED 2 MORE TIMES, ON THE THIRD TRY THE GUIDE WIRE THREADED EASILY. THE NEEDLE WAS REMOVED AND THE MIDLINE CATHETER WAS PLACED OVER THE WIRE. THE WIRE AND SHEATH WERE REMOVED. GOOD BLOOD RETURN NOTED. A CONNECTOR WAS FLUSHED AND PLACED OVER THE END OF THE CATHETER. A STAT LOCK WAS PLACED ON THE CATHETER AND A BIOPATCH WAS PLACED ON TOP OF THE INSERTION SITE. A STERILE TEGADERM WAS PLACED OVER THE MIDLINE CATHETER. PT TOLERATED THE PROCEDURE WELL. PT HAS A 20 GAUGE 10 CM POWERGLIDE CATHETER. GOOD FOR 29 DAYS. THIS IS NOT A CENTRAL LINE. REPORT WAS GIVEN TO BIRGIT SAUCEDO R.N. ON MED/SURG. THE PATIENT'S BED WAS LOWERED TO THE FLOOR POSITION WITH SIDERAILS UP X3, CALL LIGHT IS WITHIN REACH.
--- NOTE | 2020-11-14 14:37 | NUR ---
11/14/20 Contact numbers: - Joanne Shay [phone] - "not a working #" - Florinda - girlfriend - [phone] - Kristi / Wai - sister and nephew - Arcadio Gerard - friend - [phone] - Michelle Amandeep - [employer] for Community [employer] administrator social welfare Mr. hSay was admitted for OBS on 11/14/20 from the ED with dx of rhabdomyolsis with acute kidney injury and dehydration. Jas Polanco NP, admitting provider, reports the following: A referral was made to the [facility], melangeur operator # [phone], referral # [id number] by Mr. Polanco. A referral was made based on: 1. Patient was brought to the ED by a friend because patient refused EMS, 2. dx as stated above, 3. Pt was covered in feces, 3. Patient had been lying in bed for several days without food or water, and 4. Pt was reported to still be at sister and uirrkmi-it-vuk's house. - An assessment was attempted with Mr. Shay. He relayed several stories as to where he has been residing since he was discharged on 11/10/20. Mr. Shay said he was in a hotle with his friend, Arcadio Gerard. He also said he was in a vehicle at the home of his girlfriend, Florinda. - Mr. Shay states that his State administrator social welfare has found him housing. Accordingt to Mr. Shay, Arcadio Gerard and Arcadio's son will be living with him. - Ms. Bernstein reports the following: She does not have housing for Mr. Shay nor does she have the authority to place or set up housing. [facility] is not a placement agency. She may provide resources and telephone #s to the resources; she cannot make the referrals. Ms. Bernstein would plans to set up a meeting with Mr. Shay, hospital staff, a hospitality team member from the Guardianship Office, and herself. She plans to schedule the meet sometime this week because she will be on vacation beginning 11/21/20. Ms. Bernstein's campus supervisor is Luz Elena Torres (she did not have the telephone # at this time). - Ms. Bernstein was informed of Mr. Shay's diagnoses. Ms. Bernstein was with the impression that Mr. Shay was admitted from the home of his sister and [id number]. - EMS reports to have gone to [address] twice on 11/13/20. Mr. Shay's address is listed as [address] [place] [address]. - A voicemail was left for Nicolasa at [facility], , to inquire if they are still offering a bed. - Hemal at [facility] ([phone]) has requested clinicals.
[2020-11-15 05:26] LABS: EOSINOPHIL 5.6 % (0-5); HCT 26.2 % (42.0-52.0); HGB 8.3 g/dl (13.2-18.0); LYMPHOCYTE 22.3 % (15-48); MCH 28.5 pg (25.0-31.0); MCHC 31.7 g/dL (32.0-36.0); MONOCYTE 7.5 % (0-12); MPV 11.4 fL (6.0-9.5); NEUTROPHIL 63.3 % (41-80); NRBC 0; PLT 106 K/uL (150-400); RBC 2.91 M/uL (4.70-6.00); RDW 14.9 % (11.5-14.0); WBC 3.1 K/uL (4.0-10.5)
[2020-11-15 05:44] LABS: ALBUMIN 2.2 g/dL (3.4-5.0); BILIRUBIN - TOTAL 0.7 mg/dL (0.2-1.0); BUN/CREAT RATIO (CALC) 37.1 RATIO; CREATININE 0.97 mg/dL (0.67-1.17); GLOBULIN (CALCULATION) 3.1 g/dL; POTASSIUM 3.4 mmol/L (3.5-5.1); TOTAL PROTEIN 5.3 g/dL (6.4-8.2)
[2020-11-16 04:41] LABS: BUN/CREAT RATIO (CALC) 25.5 RATIO; CREATININE 0.94 mg/dL (0.67-1.17)
--- NOTE | 2020-11-16 15:13 | NUR ---
MET [facility] MAYNOR AND ALEX ASHLEY AND RADHA JAIME. ALEX ADVISED TO CALL MENTAL HEALTH FACILITY TO SEE IF PT. COULD BE EVALUATED FOR NEUROPSY EVAL. ADVISED THEM THAT PT WANTS TO GO HOME. HE REFUSES A NURSING FACILITY. HE WOULD LIKE US TO CALL [facility] TO PICK HIM UP FROM THE HOSPITAL. TC TO [facility]. WAS ADVISED THAT PT. WOULD HAVE TO BE 57 YEARS OF AGE. THEY DO NOT COMPLETE NEURO PSY EVALS. THIS WOULD HAVE TO BE DONE BY NEUROPSYCIARY. RADHA AND Lev MET WITH PT. HE REFUSED TO GO TO A REHAB FACILITY. HE INITALLY SAID HE WOULD GO TO A MENTAL HEALTH FACILITY, BUT THEM CHANGED HIS MIND AND STATED THAT HE WOULD NOT GO. HE WANTS RADHA OR MYSELF TO CONTACT [facility] FOR A RIDE. ADVISED BY RADHA THAT WE ARE MEETING WITH TI WEISS FROM [facility] ON THURSDAY, 11/19 @ 10:00 A.M. SPOKE WITH ROSALINE, SPEECH THERAPIST, WHO COMPLETED HIS COG EVAL. SHE STATED THAT SHE USUALLY REFERS PEOPLE TO [place] FOR OUTPT NEUROPSY EVALS. SPOKE WITH PT AGAIN, BUT HE REFUSES TO GO TO [place] FOR AN EVAL.
[2020-11-17 06:19] LABS: BASOPHIL 0.6 % (0-2); EOSINOPHIL 7.3 % (0-5); HCT 25.8 % (42.0-52.0); HGB 8.3 g/dl (13.2-18.0); LYMPHOCYTE 21.7 % (15-48); MCH 28.8 pg (25.0-31.0); MCHC 32.2 g/dL (32.0-36.0); MCV 89.6 fL (78.0-100.0); MONOCYTE 8.3 % (0-12); MPV 11.3 fL (6.0-9.5); NEUTROPHIL 61.8 % (41-80); NRBC 0; PLT 111 K/uL (150-400); RBC 2.88 M/uL (4.70-6.00); WBC 3.1 K/uL (4.0-10.5)
[2020-11-17 06:48] LABS: BUN/CREAT RATIO (CALC) 19.5 RATIO; CREATININE 0.87 mg/dL (0.67-1.17)
--- NOTE | 2020-11-17 16:31 | NUR ---
PT REFUSED LACTULOSE THIS AM AND HIS 4PM MD BETTY INFORMED
--- NOTE | 2020-11-17 21:23 | NUR ---
PT REFUSED 2200 MEDICATIONS , NURSE ATTEMPTED X 2 AND PT REFUSED . MD NOTIFIED
--- NOTE | 2020-11-17 23:45 | NUR ---
PT REFUSING VITAL SIGNS TO BE OBTAINED AT THIS TIME.
--- NOTE | 2020-11-17 23:49 | NUR ---
PT REFUSING MEDICATIONS AT THIS TIME , PAINT ROLLER COVERMAKER NOTIFIED.
--- NOTE | 2020-11-18 13:28 | NUR ---
PATIENT UPSET BECAUSE MD ORDERED NPO, EXPLAINED TO HIM THAT THE DOCTOR WILL HAVE TO CHANGE THAT I WAS NOT ABLE TO, HE STATED "THEN I'M SIGNING MYSELF OUT, I'M NOT LAYING HERE STARVING" INFORMED HIM OF HIS RIGHTS
[2020-11-19 05:31] LABS: BASOPHIL 0.4 % (0-2); EOSINOPHIL 4.4 % (0-5); HCT 26.8 % (42.0-52.0); HGB 8.7 g/dl (13.2-18.0); LYMPHOCYTE 14.3 % (15-48); MCH 28.8 pg (25.0-31.0); MCHC 32.5 g/dL (32.0-36.0); MCV 88.7 fL (78.0-100.0); MONOCYTE 6.4 % (0-12); MPV 10.7 fL (6.0-9.5); NEUTROPHIL 74.1 % (41-80); NRBC 0; PLT 106 K/uL (150-400); RBC 3.02 M/uL (4.70-6.00); RDW 14.9 % (11.5-14.0); WBC 5.2 K/uL (4.0-10.5)
[2020-11-19 06:08] LABS: BUN/CREAT RATIO (CALC) 13.3 RATIO; CREATININE 0.83 mg/dL (0.67-1.17); POTASSIUM 3.9 mmol/L (3.5-5.1)
--- NOTE | 2020-11-19 15:12 | NUR ---
01/18/21 This health care social worker and ADDISON Hernandez, met with Mr. Shay today. Mr. Shay agrees to [place] placement for demond within a 60 mile radius. A search has begun. Information was faxed to [place] and [facility].
--- NOTE | 2020-11-20 17:07 | NUR ---
11/20/20 Referals were made to [facility] today.
[2020-11-22] MEDS ORDERED: GABAPENTIN600 MG PO (14:30)
--- NOTE | 2020-11-22 15:16 | NUR ---
PER SHRUTHI AT [facility], PT HAS BEEN ACCEPTED AT THEIR FACILITY. REPORT FAX NUMBER IS ATT: TO SHRUTHI [phone] REPORT NUMBER IS [phone] [facility]. SHRUTHI'S NUMBER IS [phone]. DR. RAMIREZ HAS BEEN INFORMED WELL JUAN Ventura RN. PLACEMENT HAS ALSO BEEN DISCUSSED WITH PT AND HE HAS SIGNED A CHOICE FORM. [facility] HAS ALSO BEEN INFORMED.
--- NOTE | 2020-11-22 16:18 | NUR ---
MIDLINE REMOVED-PATIENT TOLERATED WELL. NO BLEEDING THROUGH. SANDBAG FOR PRESSURE
--- NOTE | 2020-11-22 17:39 | NUR ---
1630--EMS HERE TO TRANSFER PATIENT TO [facility]. PATIENT IS REFUSING TO LEAVE AND STATES GIRLFRIEND IS SUPPOSE TO BE BRINGING HIM CLOTHES, SNACKS. GIRLFRIEND CALLED AND STATES SHE HAS NOT WENT SHOPPING YET. BUILDING CUSTODIAL SUPERVISOR, BAG LOADER MACHINE OPERATOR, NOTIFIED AND ALL IN TO TALK WITH PATIENT. STAFF STATES WILL GET CLOTHES AND SNACKS FOR HIM BUT STILL REFUSES. GIRLFRIEND ALSO STATES SHE WOULD BRING HIS CLOTHES TO [place] IF NEEDED BUT STILL REFUSES. PATIENT STATES HE WILL LEAVE ONCE GIRLFRIEND COMES. EMS LEFT.
--- NOTE | 2020-11-22 19:23 | NUR ---
1909--EMS ARRIVED, PATIENT BEING DISCHARGED TO [facility]
[2021-01-27] MEDS ORDERED: NORCO 5-325 TA1 EACH PO (08:33)
[2021-01-27] MEDS ORDERED: MEDROL 4MG DOSEP4 MG PO (08:33)
[2021-01-27] MEDS ORDERED: ROBAXIN500 MG PO (08:33)
[2021-01-27] MEDS ORDERED: BACTRIM DS TAB1 EACH PO (08:41)
== END 2020-11-22 19:10 ==
LOC: FER 23:19 → FMS 11-14 02:33
PROVIDERS: Allergy & Immunology Allergy; Emergency Medicine; Nurse Practitioner; ADMIT Internal Medicine
DX: N17.9 Acute kidney failure, unspecified (principal); M62.82 Rhabdomyolysis; E86.0 Dehydration; R19.7 Diarrhea, unspecified; R53.1 Weakness; T74.01XA Adult neglect or abandonment, confirmed, initial encounter; J44.9 Chronic obstructive pulmonary disease, unspecified; J98.11 Atelectasis; F15.10 Other stimulant abuse, uncomplicated; F60.9 Personality disorder, unspecified; Z79.899 Other long term (current) drug therapy; Z20.822 Contact with and (suspected) exposure to COVID-19; Z87.891 Personal history of nicotine dependence; Z74.01 Bed confinement status
CPT/HCPCS: 36415; 71045; 80048; 80053; 80069; 80305; 81001; 82140; 82550; 83540; 83550; 83605; 83690; 83735; 84145; 84484; 85025; 86140; 87040; 87076; 87088; 87186; 92523; 94010; 94640; 94760; 97110; 97162; 97166; 97530-GP; 97535; C1751; G0378; G0480; J1170; J1642; J1650; J1885; J2550; J7030; J7120; U0002

== ENCOUNTER 2021-01-17 15:57 | Emergency (ER) | payer OTHER ==
--- NOTE | 2021-01-18 16:22 | NUR ---
REFERRAL TO COME TO ER MR. JEFFERS IS HOMELESS AND NEEDS TRANSPORTATION AND A PLACE TO STAY. DISCUSSED WITH SKYLER HOLLOWAY. RAHUL HAD PERCY CONTACT [facility] AND SUITES IN [facility] [phone]. [address] [place] [address]. A ROOM HAS BEEN SECURED FOR MR. JEFFERS. ATTEMPTED TO GET [facility] TO TRANSPORT, BUT THEY CANNOT TRANSPORT UNTIL THURSDAY CONTACTED [facility]. SPOKE WITH LEMUEL THEY WILL TRANSPORT MR. JEFFERS TO [facility]. CONFIRMATION NUMBER IS [id number]. TC FROM [place] WITH KANCHAN AFTER AN APS REFERAL WAS MADE. ADVISED HER THAT MR. JEFFERS IS GOING TO [facility]. SHE WILL FOLLOW UP WITH MR. JEFFERS.
[2021-01-27] MEDS ORDERED: MEDROL 4MG DOSEP4 MG PO (08:33)
[2021-01-27] MEDS ORDERED: ROBAXIN500 MG PO (08:33)
[2021-01-27] MEDS ORDERED: NORCO 5-325 TA1 EACH PO (08:33)
[2021-01-27] MEDS ORDERED: BACTRIM DS TAB1 EACH PO (08:41)
== END 2021-01-17 19:05 | disposition home or self-care (01) ==
LOC: FER 15:57
DX: Z74.1 Need for assistance with personal care (principal); J44.9 Chronic obstructive pulmonary disease, unspecified; F17.210 Nicotine dependence, cigarettes, uncomplicated

== ENCOUNTER 2021-01-26 13:35 | Emergency (ER) | payer OTHER ==
[2021-01-27] MEDS ORDERED: MEDROL 4MG DOSEP4 MG PO (08:33)
[2021-01-27] MEDS ORDERED: ROBAXIN500 MG PO (08:33)
[2021-01-27] MEDS ORDERED: NORCO 5-325 TA1 EACH PO (08:33)
[2021-01-27] MEDS ORDERED: BACTRIM DS TAB1 EACH PO (08:41)
== END 2021-01-26 19:40 | disposition home or self-care (01) ==
LOC: FER 13:35
DX: M54.5 Low back pain (principal); G89.29 Other chronic pain; F17.210 Nicotine dependence, cigarettes, uncomplicated; Z98.890 Other specified postprocedural states
CPT/HCPCS: 99283

== ENCOUNTER 2021-01-28 21:10 | Emergency (ER) | payer OTHER ==
[~2021-01-28 21:10] MED LIST changes: +BACTRIM DS TAB1 EACH PO; +MEDROL 4MG DOSEP4 MG PO; +NORCO 5-325 TA1 EACH PO; +ROBAXIN500 MG PO
[2021-01-28 23:24] LABS: BILIRUBIN NEGATIVE (NEGATIVE); BLOOD NEGATIVE Ery/uL (NEGATIVE); CLARITY CLEAR (CLEAR); COLOR YELLOW (YELLOW); GLUCOSE (U) NORMAL (NORMAL); LEUKOCYTES TRACE Leu/uL (NEGATIVE); NITRITE NEGATIVE (NEGATIVE); PROTEIN NEGATIVE (NEGATIVE); SPECIFIC GRAVITY 1.015 (1.001-1.030); UROBILINOGEN >=8.0 mg/dL (0.2-1.0); pH 7.5 (5.0-9.0)
[2021-01-28 23:24] LABS: BASOPHIL 0.3 % (0-2); EOSINOPHIL 0.2 % (0-5); HCT 30.2 % (42.0-52.0); HGB 10.3 g/dl (13.2-18.0); LYMPHOCYTE 12.2 % (15-48); MCH 29.9 pg (25.0-31.0); MCHC 34.1 g/dL (32.0-36.0); MCV 87.8 fL (78.0-100.0); MONOCYTE 2.6 % (0-12); MPV 10.7 fL (6.0-9.5); NEUTROPHIL 84.4 % (41-80); NRBC 0; PLT 122 K/uL (150-400); RBC 3.44 M/uL (4.70-6.00); RDW 15.6 % (11.5-14.0); WBC 5.7 K/uL (4.0-10.5)
[2021-01-28 23:33] LABS: BACTERIA 2+; SQUAMOUS EPITHELIAL CELLS RARE
[2021-01-28 23:45] LABS: ALBUMIN 2.8 g/dL (3.4-5.0); BUN/CREAT RATIO (CALC) 12.6 RATIO; CREATININE 1.03 mg/dL (0.67-1.17); GLOBULIN (CALCULATION) 3.3 g/dL; TOTAL PROTEIN 6.1 g/dL (6.4-8.2)
[2021-01-28 23:52] LABS: LACTIC ACID 1.4 mmol/L (0.4-1.9)
[2021-01-29] MEDS ORDERED: PHENERGAN12.5 M1 PO (06:28)
[2021-01-29] MEDS ORDERED: BENTYL10 MG PO (06:28)
--- NOTE | 2021-01-29 16:13 | NUR ---
PT HAS BEEN TO THE ED 01/26, 01/27, 01/28 AND STAYED INTO 01/29. HE HAS BEEN DISCHARGED. I CONTACTED [facility], PT FRIEND AND WAS TOLD THAT HE WAS GOING TO PT HOME AND GET HIS WHEELCHAIR AND COME AND GET PATIENT AT NOON. [facility] DID NOT SHOW UP. I CONTACTED FREDDY AT APS AND ALSO SUBMITTED AN APS REFERRAL. RYAN STATED THAT THERE WAS NOTHING MORE THEY COULD DO AND IF HE WAS BEING A PROBLEM TO CONTACT THE POLICE. ADVISED SKYLER KAY AND LILIAN MCGUIER OF MY CONVERSATION WITH FREDDY. MAYNOR REQUESTED RYAN'S PHONE NUMBER AND THE NUMBER WAS PROVIDED TO MAYNOR. [phone].
== END 2021-01-29 11:08 | disposition home or self-care (01) ==
LOC: FER 21:10
PROVIDERS: Emergency Medicine Emergency Medical Services
DX: R10.84 Generalized abdominal pain (principal); R11.2 Nausea with vomiting, unspecified; I10 Essential (primary) hypertension; F41.9 Anxiety disorder, unspecified; F32.9 Major depressive disorder, single episode, unspecified; Z87.09 Personal history of other diseases of the respiratory system; Z79.899 Other long term (current) drug therapy
CPT/HCPCS: 36415; 71045; 71260; 80053; 81001; 82150; 83605; 83690; 84145; 84484; 85025; 87040; 87088; 93005; 96372; J0500; J1170; J2060; J2550; J7030; Q9967

== ENCOUNTER 2021-03-31 10:20 | Emergency (ER) | payer OTHER ==
[~2021-03-31 10:20] MED LIST changes: +BENTYL10 MG PO; +PHENERGAN12.5 M1 PO
[2021-03-31 11:24] LABS: BILIRUBIN 1+ mg/dL (NEGATIVE); BLOOD 3+ Ery/uL (NEGATIVE); GLUCOSE (U) NORMAL (NORMAL); LEUKOCYTES 2+ Leu/uL (NEGATIVE); NITRITE POSITIVE (NEGATIVE); PROTEIN 1+ mg/dL (NEGATIVE)
[2021-03-31 11:25] LABS: CLARITY CLOUDY (CLEAR); COLOR AMBER (YELLOW)
[2021-03-31 11:32] LABS: BACTERIA 2+; URINARY RBC TNTC
[2021-03-31] MEDS ORDERED: NAPROXEN500 MG PO (11:42)
[2021-03-31] MEDS ORDERED: CIPRO500 MG PO (11:42)
[2021-04-02] MEDS ORDERED: NAPROXEN500 MG PO (21:41)
[2021-04-02] MEDS ORDERED: AUGMENTIN 875-1 EACH PO (21:41)
== END 2021-04-01 08:58 | disposition home or self-care (01) ==
LOC: FER 10:20
PROVIDERS: Emergency Medicine
DX: N39.0 Urinary tract infection, site not specified (principal); G89.29 Other chronic pain; M54.50 Low back pain, unspecified; F17.210 Nicotine dependence, cigarettes, uncomplicated
CPT/HCPCS: 81001; 87076; 87088; 87186; 99283; J1885

== ENCOUNTER 2021-04-02 14:22 | Emergency (ER) | payer OTHER ==
[~2021-04-02 14:22] MED LIST changes: +CIPRO500 MG PO; +NAPROXEN500 MG PO
[2021-04-02 20:52] LABS: BASOPHIL 0.5 % (0-2); HCT 42.9 % (42.0-52.0); HGB 14.4 g/dl (13.2-18.0); LYMPHOCYTE 23.7 % (15-48); MCHC 33.6 g/dL (32.0-36.0); MCV 86.3 fL (78.0-100.0); MONOCYTE 10.2 % (0-12); MPV 11.1 fL (6.0-9.5); NEUTROPHIL 62.1 % (41-80); NRBC 0; PLT 131 K/uL (150-400); RBC 4.97 M/uL (4.70-6.00); RDW 13.5 % (11.5-14.0); WBC 7.8 K/uL (4.0-10.5)
[2021-04-02 21:12] LABS: BUN/CREAT RATIO (CALC) 17.9 RATIO; CREATININE 0.78 mg/dL (0.67-1.17); POTASSIUM 3.9 mmol/L (3.5-5.1)
[2021-04-02] MEDS ORDERED: NAPROXEN500 MG PO (21:41)
[2021-04-02] MEDS ORDERED: AUGMENTIN 875-1 EACH PO (21:41)
[2021-04-02 22:41] LABS: BILIRUBIN NEGATIVE (NEGATIVE); BLOOD 1+ Ery/uL (NEGATIVE); CLARITY HAZY (CLEAR); COLOR YELLOW (YELLOW); GLUCOSE (U) NORMAL (NORMAL); LEUKOCYTES TRACE Leu/uL (NEGATIVE); NITRITE NEGATIVE (NEGATIVE); PROTEIN NEGATIVE (NEGATIVE); SPECIFIC GRAVITY 1.025 (1.001-1.030)
[2021-04-02 22:48] LABS: URINARY WBC 20-50
[2021-04-02 22:49] LABS: BACTERIA 4+; CALCIUM OXALATE CRYSTALS TRACE
== END 2021-04-03 11:40 | disposition home or self-care (01) ==
LOC: FER 14:22
PROVIDERS: Nurse Practitioner Family
DX: N39.0 Urinary tract infection, site not specified (principal); M54.50 Low back pain, unspecified; I10 Essential (primary) hypertension; F17.210 Nicotine dependence, cigarettes, uncomplicated
CPT/HCPCS: 36415; 80048; 81001; 85025; 96372; J0696; J1885

== ENCOUNTER 2021-05-21 02:29 | Emergency (ER) | payer OTHER ==
[~2021-05-21 02:29] MED LIST changes: +AUGMENTIN 875-1 EACH PO
[2021-05-21 03:17] LABS: BASOPHIL 0.3 % (0-2); EOSINOPHIL 3.7 % (0-5); HCT 33.4 % (42.0-52.0); HGB 11.3 g/dl (13.2-18.0); LYMPHOCYTE 45.6 % (15-48); MCHC 33.8 g/dL (32.0-36.0); MCV 85.6 fL (78.0-100.0); NEUTROPHIL 39.1 % (41-80); NRBC 0; RDW 14.8 % (11.5-14.0); WBC 3.3 K/uL (4.0-10.5)
[2021-05-21 03:21] LABS: INFLUENZA A NAA NEGATIVE (NEGATIVE)
[2021-05-21 03:23] LABS: CORONAVIRUS 2019 SARS-COV-2 POSITIVE (NEGATIVE)
[2021-05-21 03:38] LABS: ALBUMIN 2.4 g/dL (3.4-5.0); BILIRUBIN - TOTAL 0.7 mg/dL (0.2-1.0); BUN/CREAT RATIO (CALC) 22.2 RATIO; CREATININE 0.9 mg/dL (0.67-1.17); POTASSIUM 3.7 mmol/L (3.5-5.1); TOTAL PROTEIN 5.4 g/dL (6.4-8.2)
[2021-05-21 03:39] LABS: PLT 66 K/uL (150-400)
== END 2021-05-21 09:26 | disposition home or self-care (01) ==
LOC: FER 02:29
PROVIDERS: Internal Medicine
DX: U07.1 COVID-19 (principal); M79.671 Pain in right foot; D69.6 Thrombocytopenia, unspecified; E11.9 Type 2 diabetes mellitus without complications; I10 Essential (primary) hypertension; Z79.899 Other long term (current) drug therapy
CPT/HCPCS: 36415; 80053; 84145; 85025; U0002

== ENCOUNTER 2021-05-26 00:05 | Emergency (ER) | payer OTHER ==
[2021-05-26 04:50] LABS: BASOPHIL 0.3 % (0-2); EOSINOPHIL 3.2 % (0-5); HCT 32.3 % (42.0-52.0); LYMPHOCYTE 36.3 % (15-48); MCH 29.1 pg (25.0-31.0); MCHC 34.1 g/dL (32.0-36.0); MCV 85.4 fL (78.0-100.0); MONOCYTE 10.5 % (0-12); MPV 11.6 fL (6.0-9.5); NEUTROPHIL 49.4 % (41-80); NRBC 0; RBC 3.78 M/uL (4.70-6.00); RDW 14.6 % (11.5-14.0); WBC 3.7 K/uL (4.0-10.5)
[2021-05-26 04:51] LABS: PLT 76 K/uL (150-400)
[2021-05-26 05:08] LABS: BUN/CREAT RATIO (CALC) 14.5 RATIO; CREATININE 0.76 mg/dL (0.67-1.17); POTASSIUM 3.2 mmol/L (3.5-5.1)
== END 2021-05-26 10:24 | disposition home or self-care (01) ==
LOC: FER 00:05
PROVIDERS: Internal Medicine
DX: U07.1 COVID-19 (principal); J44.9 Chronic obstructive pulmonary disease, unspecified; I10 Essential (primary) hypertension; F17.210 Nicotine dependence, cigarettes, uncomplicated; Z53.29 Procedure and treatment not carried out because of patient's decision for other reasons
CPT/HCPCS: 36415; 36600; 71045; 80048; 82803; 84145; 84484; 85025; 85379; 93005; 94640; 94664; Q9967

== ENCOUNTER 2021-06-09 23:30 | Emergency (ER) | payer OTHER | END 2021-06-10 02:10 | disposition home or self-care (01) | LOC: FER 23:30 | DX: M54.50 Low back pain, unspecified (principal); G89.29 Other chronic pain; F32.A Depression, unspecified; J44.9 Chronic obstructive pulmonary disease, unspecified; I10 Essential (primary) hypertension; F17.210 Nicotine dependence, cigarettes, uncomplicated | CPT/HCPCS: 99283 ==

== ENCOUNTER 2021-06-11 15:39 | Emergency (ER) | payer OTHER ==
[2021-06-11 17:53] LABS: BILIRUBIN 1+ mg/dL (NEGATIVE); BLOOD NEGATIVE Ery/uL (NEGATIVE); COLOR YELLOW (YELLOW); GLUCOSE (U) NORMAL (NORMAL); LEUKOCYTES 2+ Leu/uL (NEGATIVE); NITRITE POSITIVE (NEGATIVE); PROTEIN NEGATIVE (NEGATIVE)
[2021-06-11 17:54] LABS: CLARITY HAZY (CLEAR)
[2021-06-11 17:56] LABS: ECSTASY (MDMA) NEGATIVE (NEGATIVE); MARIJUANA (THC) NEGATIVE (NEGATIVE); METHADONE NEGATIVE (NEGATIVE)
[2021-06-11 17:57] LABS: AMPHETAMINES POSITIVE (NEGATIVE); BARBITURATES NEGATIVE (NEGATIVE); OPIATES NEGATIVE (NEGATIVE); OXYCODONE POSITIVE (NEGATIVE)
[2021-06-11 17:59] LABS: BACTERIA 4+
[2021-06-11 18:46] LABS: BASOPHIL 0.8 % (0-2); EOSINOPHIL 2.4 % (0-5); HCT 31.9 % (42.0-52.0); HGB 10.9 g/dl (13.2-18.0); LYMPHOCYTE 25.5 % (15-48); MCH 29.5 pg (25.0-31.0); MCHC 34.2 g/dL (32.0-36.0); MCV 86.2 fL (78.0-100.0); MONOCYTE 10.4 % (0-12); MPV 11.1 fL (6.0-9.5); NEUTROPHIL 60.7 % (41-80); NRBC 0; PLT 101 K/uL (150-400); RDW 14.8 % (11.5-14.0)
[2021-06-11 19:03] LABS: ACETAMINOPHEN (TYLENOL) <2.0 ug/mL (10.0-30.0); ALKALINE PHOSHATASE 86 U/L (46-116); ALT 64 U/L (16-63); AST 73 U/L (15-37); BILIRUBIN - TOTAL 0.9 mg/dL (0.2-1.0); BUN 13 mg/dL (7-18); BUN/CREAT RATIO (CALC) 17.1 RATIO; CHLORIDE 111 mmol/L (98-107); CO2 (BICARBONATE) 23 mmol/L (21-32); CREATININE 0.76 mg/dL (0.67-1.17); GLUCOSE 102 mg/dL (74-106); POTASSIUM 3.4 mmol/L (3.5-5.1); TOTAL PROTEIN 5.3 g/dL (6.4-8.2)
[2021-06-11 20:19] LABS: ALBUMIN 2.3 g/dL (3.4-5.0)
[2021-06-13] MEDS ORDERED: KEFLEX250 MG PO (14:28)
== END 2021-06-13 17:00 | disposition home or self-care (01) ==
LOC: FER 15:39
PROVIDERS: Emergency Medicine
DX: R45.851 Suicidal ideations (principal); F32.A Depression, unspecified; N39.0 Urinary tract infection, site not specified; U07.1 COVID-19; I10 Essential (primary) hypertension; J44.9 Chronic obstructive pulmonary disease, unspecified; F17.200 Nicotine dependence, unspecified, uncomplicated
CPT/HCPCS: 36415; 80053; 80305; 81001; 85025; 99285; G0480; J0696; U0002

== ENCOUNTER 2021-06-14 05:17 | Emergency (ER) | payer OTHER ==
[2021-06-14 08:31] LABS: BILIRUBIN NEGATIVE (NEGATIVE); BLOOD TRACE-INTACT Ery/uL (NEGATIVE); CLARITY CLEAR (CLEAR); COLOR YELLOW (YELLOW); GLUCOSE (U) NORMAL (NORMAL); LEUKOCYTES 1+ Leu/uL (NEGATIVE); NITRITE NEGATIVE (NEGATIVE); PROTEIN NEGATIVE (NEGATIVE); SPECIFIC GRAVITY 1.025 (1.001-1.030)
[2021-06-14 08:51] LABS: URINARY WBC TNTC
[2021-06-14 08:53] LABS: MUCOUS TRACE
[2021-06-14 08:59] LABS: BACTERIA 2+
[2021-06-14 09:11] LABS: BASOPHIL 0.3 % (0-2); EOSINOPHIL 0.6 % (0-5); HCT 34.8 % (42.0-52.0); HGB 12.1 g/dl (13.2-18.0); LYMPHOCYTE 13.1 % (15-48); MCH 29.6 pg (25.0-31.0); MCHC 34.8 g/dL (32.0-36.0); MCV 85.1 fL (78.0-100.0); MONOCYTE 5.6 % (0-12); MPV 11.9 fL (6.0-9.5); NEUTROPHIL 80.2 % (41-80); NRBC 0; PLT 107 K/uL (150-400); RBC 4.09 M/uL (4.70-6.00); RDW 14.6 % (11.5-14.0); WBC 6.4 K/uL (4.0-10.5)
[2021-06-14 09:37] LABS: BUN/CREAT RATIO (CALC) 18.2 RATIO; CREATININE 0.77 mg/dL (0.67-1.17); POTASSIUM 4.2 mmol/L (3.5-5.1)
--- NOTE | 2021-06-14 17:38 | NUR ---
MET WITH DAXAVAL WITH [facility] AND MYSELF. HE HAS AGREED TO GO TO [facility] [place]. PT. WILL BE TRANSPORTED BY [facility] [phone]. TO [address] [place] [address], . PT. IS TO BE PICKED UP BY [facility] AT 2:00 AND HAVE HIM AT THE [facility] BY 3:00 P.M. RESERVATION NUMBER IS [id number]. ADVISED HIS NURSE, ANOOP IN THE ED, MARI TORRES COORDINATOR, AND LILIAN MCGUIRE.
[2021-06-17] MEDS ORDERED: BACTRIM DS TAB1 EACH PO (22:47)
== END 2021-06-16 14:24 | disposition home or self-care (01) ==
LOC: FER 05:17
PROVIDERS: Emergency Medicine Emergency Medical Services
DX: M54.6 Pain in thoracic spine (principal); M54.50 Low back pain, unspecified; N39.0 Urinary tract infection, site not specified; I10 Essential (primary) hypertension; J44.9 Chronic obstructive pulmonary disease, unspecified; Z20.822 Contact with and (suspected) exposure to COVID-19; W06.XXXA Fall from bed, initial encounter; Y92.009 Unspecified place in unspecified non-institutional (private) residence as the place of occurrence of the external cause
CPT/HCPCS: 36415; 70450; 71250; 72125; 80048; 81001; 85025; 87076; 87088; 87186; 96372; 97161; 97530-GP; J0696; J1885; J3410; U0002

== ENCOUNTER 2021-06-17 04:00 | Emergency (ER) | payer OTHER ==
[2021-06-17] MEDS ORDERED: BACTRIM DS TAB1 EACH PO (22:47)
== END 2021-06-17 15:47 | disposition home or self-care (01) ==
LOC: FER 04:00
DX: Z76.5 Malingerer [conscious simulation] (principal)
CPT/HCPCS: 99283

== ENCOUNTER 2021-06-17 22:06 | Emergency (ER) | payer OTHER ==
[2021-06-17] MEDS ORDERED: BACTRIM DS TAB1 EACH PO (22:47)
--- NOTE | 2021-06-18 13:09 | NUR ---
06/18 rachele Hernandez, met with Mr. Shay who agreed to go to [facility] in [place]. [facility] will transport at 3:00. Telephone conversation with Chico Shay, estranged son, , with this social and Kashif Mejia, was informed of plan with Mr. Shay's permission. Recommendations were made for Chico Laurita to apply for guardianship should patient return to [facility]. Chico is in agreement to make application for guardianship for placement and then to request for the State to take on the guardianship.
--- NOTE | 2021-06-18 16:44 | NUR ---
PT DEPARATED [facility] IN THE [place] [facility] [employer] [facility].
== END 2021-06-18 15:32 | disposition home or self-care (01) ==
LOC: FER 22:06
DX: Z76.5 Malingerer [conscious simulation] (principal); G89.29 Other chronic pain; M54.2 Cervicalgia; M54.9 Dorsalgia, unspecified; N39.0 Urinary tract infection, site not specified; J44.9 Chronic obstructive pulmonary disease, unspecified; I10 Essential (primary) hypertension; F17.210 Nicotine dependence, cigarettes, uncomplicated
CPT/HCPCS: J0696

== ENCOUNTER 2021-06-20 22:18 | Emergency (ER) | payer OTHER ==
[2021-06-21] MEDS ORDERED: MACROBID100 MG PO (09:15)
== END 2021-06-21 10:41 | disposition home or self-care (01) ==
LOC: FER 22:18
DX: G89.29 Other chronic pain (principal); M54.2 Cervicalgia; I50.9 Heart failure, unspecified; Z76.5 Malingerer [conscious simulation]; Z59.00 Homelessness unspecified
CPT/HCPCS: 99283; J1885

== ENCOUNTER 2021-06-24 17:23 | Emergency (ER) | payer OTHER ==
[~2021-06-24 17:23] MED LIST changes: +MACROBID100 MG PO
--- NOTE | 2021-06-25 12:01 | NUR ---
06/25/21 Mr. Shay is present in the ED and has been discharged. Kashif Mejia, home health care social worker, and this home health care social worker, telephoned Chico Shay, son, . Recommendations were made for Mr. Shay to make application for guardianship and to discuss mental inquest warrant with the Kil[employer] Puller. Mr. Shay said he would make application, however, he wishes to first speak with an attorney law clerk. Furthermore, Mr. Shay does no know when he will be able to start the process.
== END 2021-06-24 19:12 | disposition home or self-care (01) ==
LOC: FER 17:23
DX: G89.4 Chronic pain syndrome (principal); M54.50 Low back pain, unspecified; M54.2 Cervicalgia; J44.9 Chronic obstructive pulmonary disease, unspecified; I10 Essential (primary) hypertension; F17.210 Nicotine dependence, cigarettes, uncomplicated
CPT/HCPCS: 99283

== ENCOUNTER 2021-06-25 21:20 | Emergency (ER) | payer OTHER | END 2021-06-26 01:10 | disposition home or self-care (01) | LOC: FER 21:20 | DX: M54.2 Cervicalgia (principal); G89.29 Other chronic pain; J44.9 Chronic obstructive pulmonary disease, unspecified; I10 Essential (primary) hypertension; F17.210 Nicotine dependence, cigarettes, uncomplicated | CPT/HCPCS: 99283 ==

== ENCOUNTER → 2021-06-28 02:09 | Emergency (ER) | payer OTHER ==
[2021-06-28 03:26] LABS: BASOPHIL 0.8 % (0-2); EOSINOPHIL 3.3 % (0-5); HCT 29.6 % (42.0-52.0); LYMPHOCYTE 20.1 % (15-48); MCH 29.7 pg (25.0-31.0); MCHC 33.8 g/dL (32.0-36.0); MCV 87.8 fL (78.0-100.0); MONOCYTE 9.8 % (0-12); MPV 10.6 fL (6.0-9.5); NEUTROPHIL 65.6 % (41-80); NRBC 0; PLT 152 K/uL (150-400); RBC 3.37 M/uL (4.70-6.00); RDW 15.9 % (11.5-14.0)
[2021-06-28 03:29] LABS: BILIRUBIN 1+ mg/dL (NEGATIVE); BLOOD NEGATIVE Ery/uL (NEGATIVE); CLARITY CLEAR (CLEAR); COLOR YELLOW (YELLOW); GLUCOSE (U) NORMAL (NORMAL); LEUKOCYTES TRACE Leu/uL (NEGATIVE); NITRITE NEGATIVE (NEGATIVE); PROTEIN NEGATIVE (NEGATIVE); SPECIFIC GRAVITY >=1.030 (1.001-1.030)
[2021-06-28 03:30] LABS: AMPHETAMINES NEGATIVE (NEGATIVE); BARBITURATES NEGATIVE (NEGATIVE); ECSTASY (MDMA) NEGATIVE (NEGATIVE); MARIJUANA (THC) NEGATIVE (NEGATIVE); METHADONE NEGATIVE (NEGATIVE); OPIATES NEGATIVE (NEGATIVE); OXYCODONE NEGATIVE (NEGATIVE)
[2021-06-28 03:34] LABS: ACETAMINOPHEN (TYLENOL) <2.0 ug/mL (10.0-30.0); BUN 20 mg/dL (7-18); BUN/CREAT RATIO (CALC) 18.5 RATIO; CHLORIDE 109 mmol/L (98-107); CO2 (BICARBONATE) 20 mmol/L (21-32); CREATININE 1.08 mg/dL (0.67-1.17); GLUCOSE 129 mg/dL (74-106); POTASSIUM 3.9 mmol/L (3.5-5.1)
[2021-06-28 03:37] LABS: BACTERIA 2+
== END | disposition left against medical advice (07) ==
LOC: FER 02:09
PROVIDERS: Emergency Medicine Emergency Medical Services
DX: R45.851 Suicidal ideations (principal); F19.10 Other psychoactive substance abuse, uncomplicated; F10.10 Alcohol abuse, uncomplicated; E11.9 Type 2 diabetes mellitus without complications; I10 Essential (primary) hypertension; J44.9 Chronic obstructive pulmonary disease, unspecified; F17.200 Nicotine dependence, unspecified, uncomplicated; R06.02 Shortness of breath; Z20.822 Contact with and (suspected) exposure to COVID-19
CPT/HCPCS: 36415; 80048; 80305; 81001; 85025; 99283; G0480; U0002

== ENCOUNTER 2021-06-29 19:55 | Emergency (ER) | payer OTHER | END 2021-06-29 21:25 | disposition home or self-care (01) | LOC: FER 19:55 | DX: M79.604 Pain in right leg (principal); M79.605 Pain in left leg; G89.29 Other chronic pain; M54.9 Dorsalgia, unspecified; F32.A Depression, unspecified; S90.414A Abrasion, right lesser toe(s), initial encounter; I10 Essential (primary) hypertension; J44.9 Chronic obstructive pulmonary disease, unspecified; F17.210 Nicotine dependence, cigarettes, uncomplicated; Z76.5 Malingerer [conscious simulation]; Z59.00 Homelessness unspecified | CPT/HCPCS: 99283 ==

== ENCOUNTER 2021-07-31 15:51 | Emergency (ER) | payer OTHER ==
[2021-07-31 17:07] LABS: BASOPHIL 1.2 % (0-2); EOSINOPHIL 4.6 % (0-5); HCT 35.2 % (42.0-52.0); HGB 11.6 g/dl (13.2-18.0); LYMPHOCYTE 28.3 % (15-48); MCH 29.4 pg (25.0-31.0); MCV 89.1 fL (78.0-100.0); MONOCYTE 11.1 % (0-12); MPV 11.6 fL (6.0-9.5); NEUTROPHIL 54.6 % (41-80); NRBC 0; PLT 101 K/uL (150-400); RBC 3.95 M/uL (4.70-6.00); RDW 14.5 % (11.5-14.0); WBC 4.1 K/uL (4.0-10.5)
[2021-07-31 17:25] LABS: BUN/CREAT RATIO (CALC) 17.7 RATIO; CREATININE 0.96 mg/dL (0.67-1.17); POTASSIUM 3.4 mmol/L (3.5-5.1)
[2021-07-31 17:49] LABS: BILIRUBIN NEGATIVE (NEGATIVE); BLOOD NEGATIVE Ery/uL (NEGATIVE); COLOR YELLOW (YELLOW); GLUCOSE (U) NORMAL (NORMAL); LEUKOCYTES 1+ Leu/uL (NEGATIVE); NITRITE POSITIVE (NEGATIVE); PROTEIN NEGATIVE (NEGATIVE); pH 7.5 (5.0-9.0)
[2021-07-31 17:50] LABS: CLARITY HAZY (CLEAR)
[2021-07-31 17:55] LABS: BACTERIA 4+; URINARY WBC 20-50
[2021-07-31] MEDS ORDERED: AMOX TR-K CLV1 EAC4 PO (18:20)
== END 2021-07-31 18:32 | disposition home or self-care (01) ==
LOC: FER 15:51
PROVIDERS: Internal Medicine
DX: N39.0 Urinary tract infection, site not specified (principal); I10 Essential (primary) hypertension; E11.9 Type 2 diabetes mellitus without complications; J44.9 Chronic obstructive pulmonary disease, unspecified
CPT/HCPCS: 36415; 80048; 81001; 85025; 99283

== ENCOUNTER 2021-09-20 21:47 | Emergency (ER) | payer OTHER ==
[~2021-09-20 21:47] MED LIST changes: +AMOX TR-K CLV1 EAC4 PO
[2021-09-21] MEDS ORDERED: NAPROXEN500 MG PO (13:28)
== END 2021-09-21 04:15 | disposition home or self-care (01) ==
LOC: FER 21:47
DX: M54.2 Cervicalgia (principal); M54.50 Low back pain, unspecified; I10 Essential (primary) hypertension; J44.9 Chronic obstructive pulmonary disease, unspecified; F17.200 Nicotine dependence, unspecified, uncomplicated; Z76.5 Malingerer [conscious simulation]
CPT/HCPCS: 99283

== ENCOUNTER 2021-09-21 07:16 | Emergency (ER) | payer OTHER ==
[2021-09-21] MEDS ORDERED: NAPROXEN500 MG PO (13:28)
== END 2021-09-21 15:44 | disposition home or self-care (01) ==
LOC: FER 07:16
DX: M54.50 Low back pain, unspecified (principal); M54.6 Pain in thoracic spine; G89.29 Other chronic pain; I10 Essential (primary) hypertension; E11.9 Type 2 diabetes mellitus without complications; J44.9 Chronic obstructive pulmonary disease, unspecified; F17.210 Nicotine dependence, cigarettes, uncomplicated; W05.0XXA Fall from non-moving wheelchair, initial encounter; Y92.410 Unspecified street and highway as the place of occurrence of the external cause
CPT/HCPCS: 72128; 72131

== ENCOUNTER 2021-09-23 22:01 | Emergency (ER) | payer OTHER ==
[2021-09-23 23:45] LABS: BASOPHIL 0.2 % (0-2); EOSINOPHIL 0.4 % (0-5); HCT 34.4 % (42.0-52.0); HGB 11.7 g/dl (13.2-18.0); LYMPHOCYTE 11.6 % (15-48); MCH 29.8 pg (25.0-31.0); MCV 87.8 fL (78.0-100.0); MONOCYTE 11.7 % (0-12); MPV 11.2 fL (6.0-9.5); NEUTROPHIL 75.4 % (41-80); NRBC 0; PLT 195 K/uL (150-400); RBC 3.92 M/uL (4.70-6.00); RDW 15.1 % (11.5-14.0); WBC 15.8 K/uL (4.0-10.5)
[2021-09-23 23:54] LABS: BILIRUBIN NEGATIVE (NEGATIVE); BLOOD 1+ Ery/uL (NEGATIVE); CLARITY CLEAR (CLEAR); COLOR YELLOW (YELLOW); GLUCOSE (U) NORMAL (NORMAL); LEUKOCYTES 2+ Leu/uL (NEGATIVE); NITRITE NEGATIVE (NEGATIVE); PROTEIN NEGATIVE (NEGATIVE); UROBILINOGEN 0.2 mg/dL (0.2-1.0); pH 5.5 (5.0-9.0)
[2021-09-23 23:56] LABS: INR 1.39 (0.9-1.2); PROTHROMBIN TIME 16.4 SECONDS (11.8-13.4)
[2021-09-23 23:57] LABS: AMPHETAMINES NEGATIVE (NEGATIVE); BARBITURATES NEGATIVE (NEGATIVE); ECSTASY (MDMA) NEGATIVE (NEGATIVE); MARIJUANA (THC) NEGATIVE (NEGATIVE); METHADONE NEGATIVE (NEGATIVE); OPIATES NEGATIVE (NEGATIVE); OXYCODONE NEGATIVE (NEGATIVE)
[2021-09-24] LABS: BACTERIA 1+
[2021-09-24 00:07] LABS: ALBUMIN 2.8 g/dL (3.4-5.0); BILIRUBIN - TOTAL 3.9 mg/dL (0.2-1.0); BUN/CREAT RATIO (CALC) 25.9 RATIO; CREATININE 1.7 mg/dL (0.67-1.17); GLOBULIN (CALCULATION) 3.4 g/dL; POTASSIUM 4.6 mmol/L (3.5-5.1); TOTAL PROTEIN 6.2 g/dL (6.4-8.2)
[2021-09-24 00:18] LABS: LACTIC ACID 2.8 mmol/L (0.4-1.9)
== END 2021-09-24 08:56 | disposition other institution (70) ==
LOC: FER 22:01
PROVIDERS: Emergency Medicine
DX: A41.9 Sepsis, unspecified organism (principal); J69.0 Pneumonitis due to inhalation of food and vomit; R65.20 Severe sepsis without septic shock; J96.00 Acute respiratory failure, unspecified whether with hypoxia or hypercapnia; I26.99 Other pulmonary embolism without acute cor pulmonale; I10 Essential (primary) hypertension; F17.200 Nicotine dependence, unspecified, uncomplicated; Z20.822 Contact with and (suspected) exposure to COVID-19
CPT/HCPCS: 36415; 36600; 70450; 71045; 71275; 80053; 80305; 81001; 82803; 83605; 84145; 84484; 85025; 85610; 87040; 87186; 93005; 96361; 96365; 96375; J1644; J1953; J2250; J2543; J3010; J7030; U0002